=== PATIENT | male | born 1990 | race Caucasian/White ===

== ENCOUNTER 2021-03-27 19:12 | Emergency (ER) | payer MEDICARE, MEDICAID, SELFPAY ==
[2021-03-27 19:21] VITALS: BP 129/64; PULSE 86; RESP 16; TEMP 36.5; O2SAT 98; BMI 27.5
[2021-03-27 19:55] LABS: COVID-19 Test Negative (Negative); IDNOW Serial# 08D9AD1C
--- NOTE | 2021-03-27 22:04 | ED_ITS ---
HPI - URI/Sore Throat General Chief Complaint: Upper Respiratory Symptoms Stated Complaint: Cough Time Seen by Provider: 03/27/21 22:04 Source: patient and family Mode of arrival: ambulatory Limitations: no limitations History of Present Illness HPI Narrative: 31-year-old male came in for evaluation of generalized body ache, coughing, feeling tired. is sick with flu-like symptoms (do know her COVID status). Related Data Allergies Allergy/AdvReac Type Severity Reaction Status Date / Time No Known Allergies Allergy Verified 03/27/21 19:24 Review of Systems Review of Systems: All other systems are reviewed and are negative Constitutional: Reports as per HPI and Reports no additional constitutional complaints Eyes: Reports as per HPI and Reports no additional eye complaints Reports system reviewed and no additional complaints, except as documented Cardiovascular: Reports as per HPI and Reports no additional cardiovascular complaints Respiratory: Reports as per HPI and Reports no additional respiratory complaints Gastrointestinal: Reports as per HPI and Reports no additional gastrointestinal complaints Genitourinary: Reports no additional female genitourinary complaints Musculoskeletal: Reports no additional musculoskeletal complaints Skin/Breast: Reports system reviewed and no additional complaints, except as docu Psychiatric: Reports no additional psychiatric complaints Endocrine: Reports no additional endocrine complaints Hematologic/Lymphatic: Reports no additional hematologic/lymphatic complaints Allergic/Immunologic: Reports no additional allergic/immunologic complaints Reports system reviewed and no additional complaints, except as documented and Reports Abnormal speech present Physical Exam Vital Signs: Vital Signs: Last Vital Signs Temp 97.7 F 03/27/21 19:21 Pulse 86 03/27/21 19:21 Resp 16 03/27/21 19:21 BP 129/64 03/27/21 19:21 Pulse Ox 98 03/27/21 19:21 Body Mass Index 27.5 Vital signs have been reviewed as appeared to be correct. Blood pressure normal . Heart rate normal. Respiration rate normal. Temperature normal. Oxygen saturation normal. Appearance: Alert. Oriented X3. No acute distress. Head: Normal external exam. Normocephalic. Atraumatic. No Rivera signs noted. No raccoon eyes noted Eyes: PERRLA. EOMI. Conjunctiva and sclera normal. Eyelids normal. ENT: TM's Normal. Pharynx normal. Uvula midline. Moist mucous membranes. No trismus noted. No drooling noted. No muffled voice noted. Neck: Normal inspection. Neck supple. FROM. No adenopathy. Thyroid Normal. No meningeal signs. No neck mass noted. CVS: Normal heart rate and rhythm. Heart sound normal. No murmurs noted. Pulses normal throughout. Respiratory: No respiratory distress. Painless inspiration. Breath sounds normal. No wheezes/rales/rhonchi noted. Chest nontender. No accessory muscle usage noted or decreased air movement noted. Abdomen: Soft and nontender. Bowel sounds normal in all 4 quadrants. No distention noted. No organomegaly noted. No visible injury noted. Back: No CVA tenderness. Full range of motion noted. Skin: Skin warm and dry. Normal skin color. Normal skin turgor. No rashes/lesions/lacerations noted. Extremities: No lower extremity edema. Extremities exhibit normal range of motion. Extremities nontender. Neuro: Oriented X 3. Cranial nerve exam: II-XII are grossly intact No motor deficit. No sensory deficit. Reflexes normal. Course Course Course Narrative: Assessment and plan. [age] year male otherwise healthy exposed to somebody thought to be sick with COVID. COVID testing today is negative. MDM - URI/Sore Throat Lab Data Attestation: I reviewed the patient's lab results. Labs: Lab Results 03/27/21 Range/Units 19:26 COVID-19 ([facility]) Negative (Negative) COVID-19 Clin Com See Note Discharge Plan Discharge Clinical Impression: Cough with exposure to COVID-19 virus Patient Disposition: Home, Self-Care Instructions: Acute Cough (ED) Referrals: Riley Weinre FNP-[facility] [Primary Care Provider] - 2 days
== END 2021-03-27 22:55 | disposition home or self-care (01) ==
LOC: HO.ED 22:14
PROVIDERS: Emergency Provider Emergency Medicine; PCP Nurse Practitioner Family
DX: R05 Cough (principal); Z20.822 Contact with and (suspected) exposure to COVID-19
CPT/HCPCS: 36415; 87635; 99283

== ENCOUNTER 2021-08-27 05:45 | Emergency (ER) | payer MEDICARE, MEDICAID, SELFPAY ==
[2021-08-27 05:55] VITALS: BP 138/93; PULSE 94; RESP 16; TEMP 36.8; O2SAT 96; BMI 29.9
--- NOTE | 2021-08-27 07:13 | ED.DENTAL ---
HPI - Dental/Oral General Chief complaint: Dental/Oral Stated complaint: dental pain Time Seen by Provider: 08/27/21 06:43 Source: patient Mode of arrival: ambulatory Limitations: no limitations History of Present Illness HPI Narrative: 31-year-old male who presents emergency department for evaluation of pain in his left lower jaw. Patient states that he had root canals and the to lower molars on the left side of his mouth and the caps fell off the molars. He states that over the past 2 days he has had pain in the left lower jaw. He states the pain is a constant, dull ache which is 4/10 at its worst. He has been taking Aleve with some relief his pain. He has not noticed any facial swelling he states that the gums of his lower jaw or swollen. He states he has had a mild headache. He has had occasional chills. He denied fever. He denied nausea or vomiting. Related Data Previous Rx's Medication Instructions Recorded amoxicillin 500 mg capsule 1,000 mg PO Q12H 10 Days #40 cap 08/27/21 Allergies Allergy/AdvReac Type Severity Reaction Status Date / Time No Known Allergies Allergy Verified 03/27/21 19:24 Review of Systems Review of Systems: Yes all other systems are reviewed and are negative [facility] Past Medical History [facility] Narrative: Past medical history: None. Past surgical history: None. Social history: Patient does smoke cigarettes. Occasionally drinks alcohol. Occasionally smokes marijuana. Medical History (Updated 08/27/21 @ 07:16 by Neftali Marcus MD) No known health problems Surgical History (Updated 08/27/21 @ 06:00 by Yelena White) No history of previous surgery Social History Social History Alcohol intake: unknown Patient Tobacco Use Status: Tobacco use Unknown Use of substances other than those prescribed or required for medical reasons: Unknown Advance Directives: No Advance Directives Information Provided: Yes Physical Exam Vital Signs: Vital Signs: Last Vital Signs Temp 98.2 F 08/27/21 05:55 Pulse 61 08/27/21 07:40 Resp 16 08/27/21 07:40 BP 132/84 08/27/21 07:40 Pulse Ox 99 08/27/21 07:40 BMI result Body Mass Index 29.9 Const: Other: Very pleasant and cooperative male patient, does not appear to be in distress, answers all questions appropriately Orientation/consciousness: oriented to person and oriented to place HENMT: Head: Yes normal to inspection, Yes normocephalic and Yes atraumatic Face and sinus: Yes normal facial exam Mouth: Normal oral and palatal mucosa present Teeth image: 1. Very tender to palpation, dental decay as well, tender gingiva around the tooth with some slight swelling Eyes: General: appearance normal, both eyes and all related structures Pupils: Equal, round and reactive pupils present Neck: Neck: Yes normal visual inspection and Yes no lymphadenopathy Resp: Effort & Inspection: normal respiratory effort Neuro: General: oriented to person and oriented to place Cranial nerves: Yes Equal, round and reactive pupils present Psych: Appearance: grossly normal Course Course Course Narrative: 31-year-old male who presents emergency department for evaluation of dental pain with gingival swelling x2 days. Patient does have tenderness palpation over tooth 19 with swelling of the gingiva in this area. The patient's presentation is consistent with a dental infection. The patient was started on amoxicillin 1000 mg twice a day for 10 days. He is advised to take ibuprofen or Aleve and Tylenol. Discharge Plan Discharge Clinical Impression: Abscess, dental, Pain, dental Patient Disposition: Home, Self-Care Instructions: Dental Abscess (ED) Additional Instructions: Your tooth looks infected. I am prescribing an antibiotic, amoxicillin 500 mg pills, 2 pills every 12 hours for 10 days. Take ibuprofen 200 mg pills, 3 pills every 6 hours as needed for pain. Take Tylenol (acetaminophen) 500 mg pills, 2 pills every 4-6 hours as needed for pain. For pain not relieved by ibuprofen or Tylenol take oxycodone 5 mg pills, 1 pill every 4 hours as needed for pain. Do not drive or work while taking this medication since they can cause sleepiness. Oxycodone is a narcotic medication that can be addicting. If you are concerned about addiction you can ask the pharmacist for less pills or do not get this prescription filled. Follow-up with your dentist in 1 week. Please return to the emergency department if your symptoms get worse or if you develop any symptoms that are concerning to you. Prescriptions: New amoxicillin 500 mg capsule 1,000 mg PO Q12H 10 Days Qty: 40 RF: 0 Interventions: ED Discharge Assessment Last Done: 08/27/21 07:49 Discharge Date/Time: 08/27/21 07:51
[2021-08-27 07:40] VITALS: BP 132/84; PULSE 61; RESP 16; O2SAT 99
--- NOTE | 2021-08-27 07:42 | PC.NURSE ---
pt seen by Dr. Marcus for tooth ache and is now medically cleared for discharge. pt alert and oriented, vss, he currently reports 2/10 tooth ache. discharge instruction reviewed with pt.
== END 2021-08-27 07:51 | disposition home or self-care (01) ==
PROVIDERS: Emergency Provider Emergency Medicine Emergency Medical Services
DX: K04.7 Periapical abscess without sinus (principal); K08.89 Other specified disorders of teeth and supporting structures
CPT/HCPCS: 99283; 99284

== ENCOUNTER 2022-05-21 18:25 | Inpatient (IN) | payer MEDICARE, MEDICAID, SELFPAY ==
--- NOTE | ~2022-05-21 | CT_ITS ---
EXAMINATION: CT ABDOMEN AND PELVIS WITH CONTRAST CLINICAL INFORMATION: Right lower quadrant pain COMPARISON: None TECHNIQUE: Multidetector volumetric images were obtained from the superior aspect of the liver through the pubic symphysis following administration 85 mL of Omnipaque 350 intravenous contrast. Sagittal and coronal reformatted images were obtained on the technologist's workstation. Oral contrast: No This CT examination was performed using dose optimization techniques as appropriate, variously including the following: *Automated exposure control *Adjustment of mA and/or kV according to patient size (this includes techniques or standardized protocols for targeted exams where dose is matched to indication/reason for exam; i.e. extremities or head) *Use of iterative reconstruction technique DLP: 925 mGy-cm FINDINGS: LUNG BASES: The visualized lung bases are unremarkable. LIVER, GALLBLADDER, AND BILIARY TREE: Changes of diffuse hepatic steatosis. No biliary ductal dilatation or focal lesion. Gallstones present without acute auditory changes. Some of the tiny stones appear adherent to the wall. No wall thickening. PANCREAS: Unremarkable. SPLEEN: Unremarkable. ADRENAL GLANDS: Unremarkable. KIDNEYS AND URETERS: The kidneys are normal in size, shape, and attenuation. No hydronephrosis, hydroureter, or calculi seen. No perinephric stranding. BLADDER: Unremarkable. GASTROINTESTINAL TRACT: The small and large bowel are unremarkable. The appendix is unremarkable. ABDOMINAL WALL: No significant hernia is appreciated. LYMPH NODES: Normal. VASCULAR: Unremarkable. PELVIC VISCERA: Unremarkable. OSSEOUS STRUCTURES: Unremarkable. CT/CT abdomen pelvis w IV con IMPRESSION: Gallstones. No definite acute inflammatory changes. Normal appendix. Fleischner guidelines were followed.
--- NOTE | ~2022-05-21 | US_ITS ---
EXAMINATION: US ABDOMEN LIMITED CLINICAL INFORMATION: Right upper quadrant pain. COMPARISON: CT 05/21/2022 TECHNIQUE: Real-time imaging of the right upper quadrant abdominal viscera. FINDINGS: Gallbladder is physiologically distended. Multiple gallstones are identified, some of which appear nonmobile in the gallbladder neck. Gallbladder wall appears edematous and mildly thickened to 0.4 cm. Slight right upper quadrant tenderness was reported during the exam. Common bile duct appears nondilated, measuring 0.4 cm in diameter. There is increased echogenicity of the liver consistent with steatosis, with focal sparing noted near the gallbladder. US/US abdomen limited IMPRESSION: Cholelithiasis with mild gallbladder wall thickening, concerning for acute cholecystitis in the proper clinical setting.
[2022-05-21 18:30] VITALS: BP 148/92; BP 164/92; PULSE 51; PULSE 64; RESP 24; TEMP 36.5; O2SAT 100; BMI 32.3
--- NOTE | 2022-05-21 18:32 | ED_ITS ---
HPI - Abdominal Pain General Chief Complaint: Abdominal Pain <DONNA Meredith Last Filed: 05/21/22 21:43> Stated Complaint: ABD PAIN X 4HOURS <DONNA Meredith Last Filed: 05/21/22 21:43> Time Seen by Provider: 05/21/22 18:30 <DONNA Meredith Last Filed: 05/21/22 21:43> Source: patient and EMS <DONNA Meredith Last Filed: 05/21/22 21:43> Mode of arrival: EMS <DONNA Meredith Last Filed: 05/21/22 21:43> Limitations: no limitations <DONNA Meredith Last Filed: 05/21/22 21:43> History of Present Illness HPI narrative: 32 yo male presents to the ER via EMS for evaluation of sharp, severe lower abdominal pain that started about 6 hours ago while he was lying down resting. He states the pain is located on both sides of his abdomen, mostly on the right from his right upper quadrant down to his right lower quadrant. He also feels pain in his flanks and back bilaterally, he states he feels like his entire torso is being blown up like a balloon. Couple of hours ago he started vomiting bilious vomit. No blood. He has had low-grade fevers throughout the week and has been home with his sick family who has had fevers. They have tested negative for COVID. He has had a few small bowel movements today, no diarrhea. He felt constipated. <DONNA Meredith - Last Filed: 05/21/22 21:43> MD elicited complaint: abdominal pain <DONNA Meredith - Last Filed: 05/21/22 21:43> Pertinent past history: none <DONNA Meredith Last Filed: 05/21/22 21:43> Onset (ago): hour(s) (6) <DONNA Mereidth Last Filed: 05/21/22 21:43> Pain Consistency: constant <DONNA Meredith Last Filed: 05/21/22 21:43> Location: diffuse <DONNA Meredith Last Filed: 05/21/22 21:43> Severity: severe <DONNA Meredith Last Filed: 05/21/22 21:43> Pain scale (0-10): 10 <DONNA Meredith Last Filed: 05/21/22 21:43> Quality: stabbing and sharp <DONNA Meredith Last Filed: 05/21/22 21:43> Migration to: bilateral flank <DONNA Meredith Last Filed: 05/21/22 21:43> Exacerbating factors: nothing <DONNA Meredith Last Filed: 05/21/22 21:43> Relieving factors: nothing <DONNA Meredith Last Filed: 05/21/22 21:43> Associated symptoms: nausea and vomiting <DONNA Meredith Last Filed: 05/21/22 21:43> Related Data Home Medications: Previous Rx's Medication Instructions Recorded amoxicillin 500 mg capsule 1,000 mg PO Q12H 10 days #40 caps 08/27/21 oxycodone 5 mg tablet 5 mg PO Q4H PRN pain #10 tabs 08/27/21 <DONNA Meredith Last Filed: 05/21/22 21:43> Allergies/Adverse Reactions: Allergies Allergy/AdvReac Type Severity Reaction Status Date / Time No Known Allergies Allergy Verified 03/27/21 19:24 <DONNA Meredith Last Filed: 05/21/22 21:43> Review of Systems Review of Systems Constitutional: + Fever, No Chills ENT/Mouth: No sore throat, No Rhinorrhea, No Swallowing Difficulty Eyes: No Eye Pain, No Swelling, No Redness Cardiovascular: No Chest Pain, No SOB, No Orthopnea, No Edema Respiratory: No Cough, No Sputum, No Wheezing, No dyspnea Gastrointestinal: + Nausea, + Vomiting, No Diarrhea, + abdominal Pain, No Hematochezia, No Melena Genitourinary: No Dysuria, No Urinary Frequency, No Hematuria Musculoskeletal: No joint pain, No Myalgias Skin: No Skin Lesions, No rash Neuro: No Weakness, No Numbness, No Dizziness, + Headache Psych: No Anxiety/Panic, No Depression Heme/Lymph: No Bruising, No Lymphadenopathy Endocrine: No Polyuria, No Polydipsia <DONNA Meredith - Last Filed: 05/21/22 21:43> [facility] Past Medical History Medical History: Medical History (Updated 05/21/22 @ 21:39 by DONNA Meredith) No known health problems <DONNA Meredith - Last Filed: 05/21/22 21:43> Surgical History: Surgical History (Updated 08/27/21 @ 06:00 by Yelena White) No history of previous surgery <DONNA Meredith - Last Filed: 05/21/22 21:43> Social History Social History: Social History Alcohol intake: unknown Patient Tobacco Use Status: Tobacco use Unknown Advance Directives: No <DONNA Meredith - Last Filed: 05/21/22 21:43> Physical Exam ED Vital Signs: Vital Signs - 24 hr 05/21/22 18:30 05/21/22 19:15 05/21/22 22:07 Temperature 97.7 F Pulse Rate 51 58 66 Respiratory Rate 24 H 26 H 17 Blood Pressure 148/92 H 156/85 H 100/58 L Pulse Oximetry 100 99 97 Oxygen Delivery Method Room Air Room Air Room Air 05/21/22 23:13 Temperature 97.8 F Pulse Rate 65 Respiratory Rate 14 Blood Pressure 115/64 Pulse Oximetry 97 Oxygen Delivery Method Room Air BMI result Body Mass Index 32.3 <DONNA Meredith - Last Filed: 05/21/22 21:43> Vital Signs - 24 hr 05/21/22 18:30 05/21/22 19:15 05/21/22 22:07 Temperature 97.7 F Pulse Rate 51 58 66 Respiratory Rate 24 H 26 H 17 Blood Pressure 148/92 H 156/85 H 100/58 L Pulse Oximetry 100 99 97 Oxygen Delivery Method Room Air Room Air Room Air 05/21/22 23:13 Temperature 97.8 F Pulse Rate 65 Respiratory Rate 14 Blood Pressure 115/64 Pulse Oximetry 97 Oxygen Delivery Method Room Air BMI result Body Mass Index 32.3 <DONNA Larson - Last Filed: 05/22/22 01:28> Appearance: Alert. Oriented X3. Appears to be uncomfortable, diapho retic, pale Eyes: Pupils equal, round and reactive to light. ENT: Pharynx normal. Neck: Normal inspection. Neck supple. CVS: Normal heart rate and rhythm. Pulses normal. Respiratory: No respiratory distress. Breath sounds normal. Abdomen: Abdomen has diffuse severe tenderness throughout with guarding R>L, RUQ and RLL both very tender. Normal bowel sounds x4 Skin: Skin warm and dry. Normal skin color. Normal skin turgor. No rashes. Extremities: No lower extremity edema. Neuro: Oriented X 3. No motor deficit. No sensory deficit. Grossly normal, nonfocal <DONNA Meredith - Last Filed: 05/21/22 21:43> Course Course Course Narrative: 32-year-old male presents to the ER for evaluation of severe abdominal pain, mostly located on the right side both upper and lower quadrants along with bilious vomiting for the last few hours. Concern for possible acute cholecystitis versus acute appendicitis. Will get labs including LFTs, lipase, CMP, and CT abdomen/pelvis. IV fluids, IV Dilaudid and IV Zofran have been ordered. Will reassess. Dispo pending results and improvement. <DONNA Meredith - Last Filed: 05/21/22 21:43> Reevaluation(s) Reevaluation #1: WBC 13.2. CT scan reviewed - concern for possible acute cholecystitis. LFTs unremarkable aside from ALT 94, normal bili, alk phos an lipase. will check lactic acid, cultures and empirically treat with zosyn for now. pending official CT read. Pain and vomiting improved after meds. Signed out to night provider who will assume care. <DONNA Meredith - Last Filed: 05/21/22 21:43> Reevaluation #2: CT of the abdomen with noted gallstones however no definite acute inflammatory changes. Normal appearing appendix. Based off patient's pain and presentation will obtain an ultrasound of right upper quadrant to rule out cholecystitis <DONNA Larson Last Filed: 05/22/22 01:28> Time: 23:53 <DONNA Larson - Last Filed: 05/22/22 01:28> Reevaluation #3: Patient reports significant improvement in symptoms. Pending ultrasound of the right upper quadrant. Tolerating p.o., taking sips of water without difficulty. Sign will be given to Dr. Cortes pending ultrasound, , re-evaluation, disposition pending re-evaluation and imaging. <DONNA Larson - Last Filed: 05/22/22 01:28> Time: 01:26 <DONNA Larson - Last Filed: 05/22/22 01:28> MDM - Abdominal Pain Lab Data Result diagrams: : 05/21/22 19:05 05/21/22 19:05 <DONNA Meredith - Last Filed: 05/21/22 21:43> Labs: Lab Results 05/21/22 05/21/22 05/21/22 Range/Units 19:05 19:05 19:05 WBC 13.2 H (4.8-10.8) X10*3/uL RBC 4.97 (4.60-5.80) X10*6/uL Hgb 16.0 (14.0-18.0) g/dl Hct 45.8 (42.0-52.0) % MCV 92.2 (80.0-98.0) fL MCH 32.2 (27.0-33.0) pg MCHC 34.9 (31.0-36.0) g/dl RDW 12.2 (11.0-16.0) % Plt Count 290 (160-400) X10*3/uL MPV 10.2 (9.4-12.4) fL Immature Gran % (Auto) 0.3 (0.0-0.4) % Neut % (Auto) 74.8 H (45-73) % Lymph % (Auto) 17.7 L (20-40) % Lincoln % (Auto) 4.3 (2-11) % Eos % (Auto) 2.2 (0-4) % Baso % (Auto) 0.7 (0-2) % Lymph # (Auto) 2.3 (1.2-4.9) X10*3/uL Lincoln # (Auto) 0.6 (0.1-1.2) X10*3/uL Eos # (Auto) 0.3 (0.0-0.4) X10*3/uL Baso # (Auto) 0.1 (0.0-0.2) X10*3/uL Abs Immat Gran (auto) 0.04 H (0.00-0.03) X10*3/uL Absolute Neuts (auto) 9.9 H (2.0-8.3) x10*3/uL Absolute Nucleated RBC 0.000 (0.0-0.012) X10*3/uL Nucleated RBC % (auto) 0.0 (0.0-0.2) /100WBC Sodium 142 (135-145) mmol/L Potassium 4.0 (3.3-5.1) mmol/L Chloride 107 (96-108) mmol/L Carbon Dioxide 24 (22-29) mmol/L Anion Gap 15 (12-20) BUN 12 (9-16) mg/dL Creatinine 1.18 (0.5-1.4) mg/dL Estim Creat Clear Calc 123.0 Estimated GFR > 60 Random Glucose 126 H (60-115) mg/dL Lactic Acid (0.5-2.0) mmol/L Calcium 9.4 (8.4-10.2) mg/dL Magnesium 2.1 (1.6-2.6) mg/dL Total Bilirubin 0.4 (0.0-1.0) mg/dL Direct Bilirubin 0.2 (0.0-0.5) mg/dL AST 29 (5-37) U/L ALT 94 H (0-40) U/L Alkaline Phosphatase 94 (39-117) U/L Total Protein 8.2 H (6.5-8.0) g/dL Albumin 4.8 (3.5-5.0) g/dL Lipase 14 (8-78) U/L Ethyl Alcohol mg/dL COVID-19 ([facility]) Negative (Negative) COVID-19 Clin Com See Note 05/21/22 05/21/22 Range/Units 19:05 21:56 WBC (4.8-10.8) X10*3/uL RBC (4.60-5.80) X10*6/uL Hgb (14.0-18.0) g/dl Hct (42.0-52.0) % MCV (80.0-98.0) fL MCH (27.0-33.0) pg MCHC (31.0-36.0) g/dl RDW (11.0-16.0) % Plt Count (160-400) X10*3/uL MPV (9.4-12.4) fL Immature Gran % (Auto) (0.0-0.4) % Neut % (Auto) (45-73) % Lymph % (Auto) (20-40) % Lincoln % (Auto) (2-11) % Eos % (Auto) (0-4) % Baso % (Auto) (0-2) % Lymph # (Auto) (1.2-4.9) X10*3/uL Lincoln # (Auto) (0.1-1.2) X10*3/uL Eos # (Auto) (0.0-0.4) X10*3/uL Baso # (Auto) (0.0-0.2) X10*3/uL Abs Immat Gran (auto) (0.00-0.03) X10*3/uL Absolute Neuts (auto) (2.0-8.3) x10*3/uL Absolute Nucleated RBC (0.0-0.012) X10*3/uL Nucleated RBC % (auto) (0.0-0.2) /100WBC Sodium (135-145) mmol/L Potassium (3.3-5.1) mmol/L Chloride (96-108) mmol/L Carbon Dioxide (22-29) mmol/L Anion Gap (12-20) BUN (9-16) mg/dL Creatinine (0.5-1.4) mg/dL Estim Creat Clear Calc Estimated GFR Random Glucose (60-115) mg/dL Lactic Acid 1.7 (0.5-2.0) mmol/L Calcium (8.4-10.2) mg/dL Magnesium (1.6-2.6) mg/dL Total Bilirubin (0.0-1.0) mg/dL Direct Bilirubin (0.0-0.5) mg/dL AST (5-37) U/L ALT (0-40) U/L Alkaline Phosphatase (39-117) U/L Total Protein (6.5-8.0) g/dL Albumin (3.5-5.0) g/dL Lipase (8-78) U/L Ethyl Alcohol < 10 mg/dL COVID-19 ([facility]) (Negative) COVID-19 Clin Com <DONNA Meredith - Last Filed: 05/21/22 21:43> Lab Results 05/21/22 05/21/22 05/21/22 Range/Units 19:05 19:05 19:05 WBC 13.2 H (4.8-10.8) X10*3/uL RBC 4.97 (4.60-5.80) X10*6/uL Hgb 16.0 (14.0-18.0) g/dl Hct 45.8 (42.0-52.0) % MCV 92.2 (80.0-98.0) fL MCH 32.2 (27.0-33.0) pg MCHC 34.9 (31.0-36.0) g/dl RDW 12.2 (11.0-16.0) % Plt Count 290 (160-400) X10*3/uL MPV 10.2 (9.4-12.4) fL Immature Gran % (Auto) 0.3 (0.0-0.4) % Neut % (Auto) 74.8 H (45-73) % Lymph % (Auto) 17.7 L (20-40) % Lincoln % (Auto) 4.3 (2-11) % Eos % (Auto) 2.2 (0-4) % Baso % (Auto) 0.7 (0-2) % Lymph # (Auto) 2.3 (1.2-4.9) X10*3/uL Lincoln # (Auto) 0.6 (0.1-1.2) X10*3/uL Eos # (Auto) 0.3 (0.0-0.4) X10*3/uL Baso # (Auto) 0.1 (0.0-0.2) X10*3/uL Abs Immat Gran (auto) 0.04 H (0.00-0.03) X10*3/uL Absolute Neuts (auto) 9.9 H (2.0-8.3) x10*3/uL Absolute Nucleated RBC 0.000 (0.0-0.012) X10*3/uL Nucleated RBC % (auto) 0.0 (0.0-0.2) /100WBC Sodium 142 (135-145) mmol/L Potassium 4.0 (3.3-5.1) mmol/L Chloride 107 (96-108) mmol/L Carbon Dioxide 24 (22-29) mmol/L Anion Gap 15 (12-20) BUN 12 (9-16) mg/dL Creatinine 1.18 (0.5-1.4) mg/dL Estim Creat Clear Calc 123.0 Estimated GFR > 60 Random Glucose 126 H (60-115) mg/dL Lactic Acid (0.5-2.0) mmol/L Calcium 9.4 (8.4-10.2) mg/dL Magnesium 2.1 (1.6-2.6) mg/dL Total Bilirubin 0.4 (0.0-1.0) mg/dL Direct Bilirubin 0.2 (0.0-0.5) mg/dL AST 29 (5-37) U/L ALT 94 H (0-40) U/L Alkaline Phosphatase 94 (39-117) U/L Total Protein 8.2 H (6.5-8.0) g/dL Albumin 4.8 (3.5-5.0) g/dL Lipase 14 (8-78) U/L Ethyl Alcohol mg/dL COVID-19 ([facility]) Negative (Negative) COVID-19 Clin Com See Note 05/21/22 05/21/22 Range/Units 19:05 21:56 WBC (4.8-10.8) X10*3/uL RBC (4.60-5.80) X10*6/uL Hgb (14.0-18.0) g/dl Hct (42.0-52.0) % MCV (80.0-98.0) fL MCH (27.0-33.0) pg MCHC (31.0-36.0) g/dl RDW (11.0-16.0) % Plt Count (160-400) X10*3/uL MPV (9.4-12.4) fL Immature Gran % (Auto) (0.0-0.4) % Neut % (Auto) (45-73) % Lymph % (Auto) (20-40) % Lincoln % (Auto) (2-11) % Eos % (Auto) (0-4) % Baso % (Auto) (0-2) % Lymph # (Auto) (1.2-4.9) X10*3/uL Lincoln # (Auto) (0.1-1.2) X10*3/uL Eos # (Auto) (0.0-0.4) X10*3/uL Baso # (Auto) (0.0-0.2) X10*3/uL Abs Immat Gran (auto) (0.00-0.03) X10*3/uL Absolute Neuts (auto) (2.0-8.3) x10*3/uL Absolute Nucleated RBC (0.0-0.012) X10*3/uL Nucleated RBC % (auto) (0.0-0.2) /100WBC Sodium (135-145) mmol/L Potassium (3.3-5.1) mmol/L Chloride (96-108) mmol/L Carbon Dioxide (22-29) mmol/L Anion Gap (12-20) BUN (9-16) mg/dL Creatinine (0.5-1.4) mg/dL Estim Creat Clear Calc Estimated GFR Random Glucose (60-115) mg/dL Lactic Acid 1.7 (0.5-2.0) mmol/L Calcium (8.4-10.2) mg/dL Magnesium (1.6-2.6) mg/dL Total Bilirubin (0.0-1.0) mg/dL Direct Bilirubin (0.0-0.5) mg/dL AST (5-37) U/L ALT (0-40) U/L Alkaline Phosphatase (39-117) U/L Total Protein (6.5-8.0) g/dL Albumin (3.5-5.0) g/dL Lipase (8-78) U/L Ethyl Alcohol < 10 mg/dL COVID-19 ([facility]) (Negative) COVID-19 Clin Com <DONNA Larson - Last Filed: 05/22/22 01:28> Critical Care Time Critical Care Time Critical Care Time: No <DONNA Larson - Last Filed: 05/22/22 01:28> Discharge Plan Discharge Clinical Impression: Abdominal pain <DONNA Meredith - Last Filed: 05/21/22 21:43> Patient Disposition: Still a Patient <DONNA Meredith - Last Filed: 05/21/22 21:43> Prescriptions: No Action amoxicillin 500 mg capsule 1,000 mg PO Q12H 10 Days Qty: 40 0RF oxycodone 5 mg tablet 5 mg PO Q4H PRN (Reason: pain) Qty: 10 0RF Rx Instructions: Patient may request partial fill <DONNA Meredith - Last Filed: 05/21/22 21:43>
[2022-05-21 19:14] LABS: MANUAL DIFF FLAG NO
[2022-05-21 19:15] VITALS: BP 156/85; PULSE 58; RESP 26; O2SAT 99
[2022-05-21 19:15] LABS: Basophils Absolute Auto 0.1 X10*3/uL (0.0-0.2); Basophils Percent Auto 0.7 % (0-2); Eosinophils Absolute Auto 0.3 X10*3/uL (0.0-0.4); Eosinophils Percent Auto 2.2 % (0-4); Hematocrit 45.8 % (42.0-52.0); Imm Gran Abs Auto 0.04 X10*3/uL (0.00-0.03); Imm Gran Pct Auto 0.3 % (0.0-0.4); Lymphocytes Absolute Auto 2.3 X10*3/uL (1.2-4.9); Lymphocytes Percent Auto 17.7 % (20-40); Mean Corpuscular HGB Conc 34.9 g/dl (31.0-36.0); Mean Corpuscular Hemoglobin 32.2 pg (27.0-33.0); Mean Corpuscular Volume 92.2 fL (80.0-98.0); Mean Platelet Volume 10.2 fL (9.4-12.4); Monocytes Absolute Auto 0.6 X10*3/uL (0.1-1.2); Monocytes Percent Auto 4.3 % (2-11); Neutrophils Absolute Auto 9.9 x10*3/uL (2.0-8.3); Neutrophils Percent Auto 74.8 % (45-73); Platelet Count 290 X10*3/uL (160-400); Red Blood Count 4.97 X10*6/uL (4.60-5.80); Red Cell Distribution Width 12.2 % (11.0-16.0); White Blood Count 13.2 X10*3/uL (4.8-10.8)
[2022-05-21] MEDS: HYDROmorphone HCl 1 MG/ML SYRINGE IVPUSH (19:22)
--- NOTE | 2022-05-21 19:22 | PC.NURSE ---
Order for Morphine cancelled. Returning to [facility] at this time
--- NOTE | 2022-05-21 19:22 | PC.NURSE ---
Pt. on monitor and storage bin tender at this time by this RN
[2022-05-21] MEDS: ondansetron HCL 4 MG/2 ML VIAL IVPUSH (19:24)
[2022-05-21 19:27] LABS: Ethanol < 10 mg/dL
[2022-05-21 19:29] LABS: Alanine Aminotransferase 94 U/L (0-40); Albumin Level 4.8 g/dL (3.5-5.0); Alkaline Phosphatase 94 U/L (39-117); Anion Gap 15 (12-20); Aspartate Amino Transferase 29 U/L (5-37); Bilirubin Direct 0.2 mg/dL (0.0-0.5); Bilirubin Total 0.4 mg/dL (0.0-1.0); Blood Urea Nitrogen 12 mg/dL (9-16); Calcium 9.4 mg/dL (8.4-10.2); Carbon Dioxide 24 mmol/L (22-29); Chloride 107 mmol/L (96-108); Estimated Glomerular Filt Rate > 60; Glucose Random 126 mg/dL (60-115); Lipase 14 U/L (8-78); Magnesium 2.1 mg/dL (1.6-2.6); Sodium 142 mmol/L (135-145); Total Protein 8.2 g/dL (6.5-8.0)
[2022-05-21 19:30] LABS: COVID-19 Test Negative (Negative)
[2022-05-21] MEDS: iohexoL 350 MG/ML 100 ML INFUS..BTL IV (21:19)
--- NOTE | 2022-05-21 21:24 | PC.NURSE ---
Float RN called into assist CT with IV placement. Pt's #20G to the Right arm did not have blood return and although it flushed the surrounding area appeared to be infiltrated. RN placed new #20G to the left forearm; CT to dc IV line on right side
[2022-05-21 22:07] VITALS: BP 100/58; PULSE 66; RESP 17; O2SAT 97
[2022-05-21 22:11] LABS: Lactic Acid 1.7 mmol/L (0.5-2.0)
[2022-05-21] MEDS: Piperacillin Sodium/Tazobactam 3.375 GM in 0.9 % Sodium Chloride 50 ML IV (22:24)
[2022-05-21] MEDS: 0.9 % Sodium Chloride 1,000 ML 999 ML IVCONT (22:25)
[2022-05-21 23:13] VITALS: BP 115/64; PULSE 65; RESP 14; TEMP 36.6; O2SAT 97
--- NOTE | 2022-05-21 23:54 | PC.NURSE ---
Still awaiting urine spec. at this time. Pt. has urinal at bedside
[2022-05-22 01:26] LABS: Appearance Urine Clear; Color Urine Yellow; Glucose Urine UA Negative (Negative); Leukocyte Esterase Urine Negative (Negative); Nitrite Urine Negative (Negative); PH 6.5 (5.0-9.0); Specific Gravity - Urine >= 1.030 (1.005-1.025); Urine Blood Negative (Negative); Urine Ketones Negative (Negative); Urine Protein Negative (Neg-Trace)
[2022-05-22 01:39] LABS: Amphetamine Screen Urine Not Detected (Not Detect); Barbiturates, Urine Not Detected (Not Detect); Benzodiazepines Screen Urine Not Detected (Not Detect); Cannabinoid Screen Urine POSITIVE (Not Detect); Cocaine Screen Urine Not Detected (Not Detect); Fentanyl, urine Not Detected (Not Detect); Opiate Screen Urine Not Detected (Not Detect); Phencyclidine Screen Urine Not Detected (Not Detect)
[2022-05-22 02:41] VITALS: BP 124/65; PULSE 59; RESP 12; O2SAT 98
[2022-05-22] MEDS: 0.9 % Sodium Chloride 1,000 ML 100 ML IVCONT ×3 (03:15→21:49)
[2022-05-22 04:43] VITALS: BP 116/67; PULSE 69; RESP 13; TEMP 36.8; O2SAT 98
[2022-05-22] MEDS: Piperacillin Sodium/Tazobactam 3.375 GM in 0.9 % Sodium Chloride 50 ML IV ×4 (06:27→23:16)
[2022-05-22 07:15] LABS: MANUAL DIFF FLAG NO
[2022-05-22 07:26] LABS: Basophils Absolute Auto 0.1 X10*3/uL (0.0-0.2); Basophils Percent Auto 0.5 % (0-2); Eosinophils Absolute Auto 0.2 X10*3/uL (0.0-0.4); Eosinophils Percent Auto 1.7 % (0-4); Hematocrit 39.5 % (42.0-52.0); Hemoglobin 13.8 g/dl (14.0-18.0); Imm Gran Abs Auto 0.02 X10*3/uL (0.00-0.03); Imm Gran Pct Auto 0.2 % (0.0-0.4); Lymphocytes Percent Auto 31.7 % (20-40); Mean Corpuscular HGB Conc 34.9 g/dl (31.0-36.0); Mean Corpuscular Hemoglobin 32.6 pg (27.0-33.0); Mean Corpuscular Volume 93.4 fL (80.0-98.0); Mean Platelet Volume 10.7 fL (9.4-12.4); Monocytes Absolute Auto 0.6 X10*3/uL (0.1-1.2); Monocytes Percent Auto 6.1 % (2-11); Neutrophils Absolute Auto 5.7 x10*3/uL (2.0-8.3); Neutrophils Percent Auto 59.8 % (45-73); Platelet Count 234 X10*3/uL (160-400); Red Blood Count 4.23 X10*6/uL (4.60-5.80); Red Cell Distribution Width 12.1 % (11.0-16.0); White Blood Count 9.5 X10*3/uL (4.8-10.8)
[2022-05-22 07:41] LABS: Alanine Aminotransferase 70 U/L (0-40); Albumin Level 3.8 g/dL (3.5-5.0); Alkaline Phosphatase 77 U/L (39-117); Anion Gap 14 (12-20); Aspartate Amino Transferase 21 U/L (5-37); Bilirubin Direct 0.2 mg/dL (0.0-0.5); Bilirubin Total 0.6 mg/dL (0.0-1.0); Blood Urea Nitrogen 9 mg/dL (9-16); Calcium 8.8 mg/dL (8.4-10.2); Carbon Dioxide 25 mmol/L (22-29); Chloride 107 mmol/L (96-108); Creatinine Clr Calc Pharmacy 186.2; Estimated Glomerular Filt Rate > 60; Glucose Random 94 mg/dL (60-115); Potassium 3.7 mmol/L (3.3-5.1); Sodium 142 mmol/L (135-145); Total Protein 6.5 g/dL (6.5-8.0)
[2022-05-22 07:43] VITALS: BP 119/67; PULSE 69; RESP 14; TEMP 36.4; O2SAT 98
--- NOTE | 2022-05-22 09:18 | P.HPGS_ITS ---
History of Present Illness History of Present Illness Date of Service: 05/25/22 Chief complaint: Abdominal Pain Narrative: Ger Brito is a 32 year old male who came to the ED last night because of abdominal pain. He says this started about midafternoon yesterday. He actually described pain on the entire anterior chest and abdomen. He says he felt like he had a balloon inside his torso. He described the pain as diffuse and not only right sided. He had some vomitting at home. He denies similar pain in the past. He currently denies pain and says he is comfortable. he had an US early this AM suggesting possible cholecystitis. He says he drinks alcohol occasional and denies alcohol intake yesterday. He smokes about 1 pack every 2 weeks. He smokes marijuana occasionally. Review of Systems Constitutional: Constitutional: Denies chills and Denies fever(s) Cardiovascular: Cardiovascular: Reports chest pain, Denies dyspnea and Denies dyspnea on exertion Respiratory: Respiratory: Denies cough, Denies dyspnea and Denies dyspnea on exertion Gastrointestinal: Gastrointestinal: Denies hematochezia and Denies change in bowel habits Genitourinary: Genitourinary: Denies hematuria and Denies difficulty urinating Musculoskeletal: Musculoskeletal: Denies back pain and Denies limited range of motion Neurologic: Denies focal weakness and Denies convulsions Psychiatric: Psychiatric: Denies depression and Denies mood swings PMFSH Past Medical History Medical History (Updated 05/22/22 @ 09:40 by Marc Reid MD) Gallstones No known health problems Surgical History Surgical History No history of previous surgery Social History Social History Household Members: Family Housing: Apartment Do you presently have visiting nurse or other home services: No Alcohol intake: unknown Patient Tobacco Use Status: Current everyday Tobacco user Tobacco use type: Cigarette Substance Use Type: Marijuana service: No Current occupational status: disabled Meds Allergies Allergy/AdvReac Type Severity Reaction Status Date / Time No Known Allergies Allergy Verified 03/27/21 19:24 Active Medications: Current Medications Sodium Chloride (Ns) 1,000 mls @ 100 mls/hr IVCONT .Q10H [facility] Last Admin: 05/22/22 03:15 Dose: 100 mls/hr Piperacillin Sod/Tazobactam (Sod 3.375 gm/ Sodium Chloride) 50 mls @ 100 mls/hr IV Q6H [facility] Last Infusion: 05/22/22 07:29 Dose: Infused Morphine Sulfate (Morphine Sulfate 4 Mg/Ml Cartridge) 4 mg IVPUSH Q4H PRN; Protocol PRN Reason: Pain, Severe (Pain Scale 7-10) Ondansetron HCl (Ondansetron Hcl 4 Mg/2 Ml Vial) 4 mg IVPUSH Q8H PRN PRN Reason: Nausea and Vomiting Sodium Chloride (0.9 % Sodium Chloride Flush 3 Ml Syringe) 3 ml IVFLUSH QSHIFT [facility] Home Medications Medication Instructions Recorded Confirmed Last Taken Type No Known Home Meds 05/22/22 05/22/22 Unknown History Physical Exam Vital Signs: Vital Signs: Last Vital Signs Temp 97.5 F 05/22/22 07:43 Pulse 69 05/22/22 07:43 Resp 14 05/22/22 07:43 BP 119/67 05/22/22 07:43 Pulse Ox 98 05/22/22 07:43 O2 Del Method 05/22/22 07:43 BMI result Body Mass Index 32.3 Const: General: comfortable and no acute distress Orientation/consciousness: patient oriented x3 Neck: Neck: Yes no lymphadenopathy Resp: Auscultation: clear to auscultation bilaterally Cardio: Rhythm: regular rhythm GI: Other: no Lopez's sign Palpation (GI): Soft to palpation, nontender and no guarding Neuro: General: patient oriented x3 Results Results Labs: Short CBC 05/21/22 05/22/22 Range/Units 19:05 06:53 WBC 13.2 H 9.5 (4.8-10.8) X10*3/uL Hgb 16.0 13.8 L (14.0-18.0) g/dl Hct 45.8 39.5 L (42.0-52.0) % Plt Count 290 234 (160-400) X10*3/uL BMP 05/21/22 05/22/22 19:05 06:53 Sodium 142 142 Potassium 4.0 3.7 Chloride 107 107 Carbon Dioxide 24 25 BUN 12 9 Creatinine 1.18 0.78 Calcium 9.4 8.8 D Liver Function 05/21/22 05/22/22 Range/Units 19:05 06:53 Total Bilirubin 0.4 0.6 (0.0-1.0) mg/dL Direct Bilirubin 0.2 0.2 (0.0-0.5) mg/dL AST 29 21 (5-37) U/L ALT 94 H 70 H (0-40) U/L Alkaline Phosphatase 94 77 (39-117) U/L Albumin 4.8 3.8 D (3.5-5.0) g/dL Urine 05/22/22 Range/Units 01:21 Urine Color Yellow Urine Appearance Clear Urine pH 6.5 (5.0-9.0) Ur Specific [place] >= 1.030 H (1.005-1.025) Urine Protein Negative (Neg-Trace) mg/dL Urine Glucose (UA) Negative (Negative) mg/dL Additional studies: Laboratory Results WBC 9.5 X10*3/uL (4.8-10.8) 05/22/22 06:53 RBC 4.23 X10*6/uL (4.60-5.80) L 05/22/22 06:53 Hgb 13.8 g/dl (14.0-18.0) L 05/22/22 06:53 Hct 39.5 % (42.0-52.0) L 05/22/22 06:53 MCV 93.4 fL (80.0-98.0) 05/22/22 06:53 MCH 32.6 pg (27.0-33.0) 05/22/22 06:53 MCHC 34.9 g/dl (31.0-36.0) 05/22/22 06:53 RDW 12.1 % (11.0-16.0) 05/22/22 06:53 Plt Count 234 X10*3/uL (160-400) 05/22/22 06:53 MPV 10.7 fL (9.4-12.4) 05/22/22 06:53 Immature Gran % (Auto) 0.2 % (0.0-0.4) 05/22/22 06:53 Neut % (Auto) 59.8 % (45-73) 05/22/22 06:53 Lymph % (Auto) 31.7 % (20-40) 05/22/22 06:53 [place] % (Auto) 6.1 % (2-11) 05/22/22 06:53 Eos % (Auto) 1.7 % (0-4) 05/22/22 06:53 Baso % (Auto) 0.5 % (0-2) 05/22/22 06:53 Lymph # (Auto) 3.0 X10*3/uL (1.2-4.9) 05/22/22 06:53 [place] # (Auto) 0.6 X10*3/uL (0.1-1.2) 05/22/22 06:53 Eos # (Auto) 0.2 X10*3/uL (0.0-0.4) 05/22/22 06:53 Baso # (Auto) 0.1 X10*3/uL (0.0-0.2) 05/22/22 06:53 Abs Immat Gran (auto) 0.02 X10*3/uL (0.00-0.03) 05/22/22 06:53 Absolute Neuts (auto) 5.7 x10*3/uL (2.0-8.3) 05/22/22 06:53 Absolute Nucleated RBC 0.000 X10*3/uL (0.0-0.012) 05/22/22 06:53 Nucleated RBC % (auto) 0.0 /100WBC (0.0-0.2) 05/22/22 06:53 Sodium 142 mmol/L (135-145) 05/22/22 06:53 Potassium 3.7 mmol/L (3.3-5.1) 05/22/22 06:53 Chloride 107 mmol/L (96-108) 05/22/22 06:53 Carbon Dioxide 25 mmol/L (22-29) 05/22/22 06:53 Anion Gap 14 (12-20) 05/22/22 06:53 BUN 9 mg/dL (9-16) 05/22/22 06:53 Creatinine 0.78 mg/dL (0.5-1.4) 05/22/22 06:53 Estim Creat Clear Calc 186.2 05/22/22 06:53 Estimated GFR > 60 05/22/22 06:53 Random Glucose 94 mg/dL (60-115) 05/22/22 06:53 Lactic Acid 1.7 mmol/L (0.5-2.0) 05/21/22 21:56 Calcium 8.8 mg/dL (8.4-10.2) D 05/22/22 06:53 Magnesium 2.1 mg/dL (1.6-2.6) 05/21/22 19:05 Total Bilirubin 0.6 mg/dL (0.0-1.0) 05/22/22 06:53 Direct Bilirubin 0.2 mg/dL (0.0-0.5) 05/22/22 06:53 AST 21 U/L (5-37) 05/22/22 06:53 ALT 70 U/L (0-40) H 05/22/22 06:53 Alkaline Phosphatase 77 U/L (39-117) 05/22/22 06:53 Total Protein 6.5 g/dL (6.5-8.0) D 05/22/22 06:53 Albumin 3.8 g/dL (3.5-5.0) D 05/22/22 06:53 Lipase 14 U/L (8-78) 05/21/22 19:05 Urine Color Yellow 05/22/22 01:21 Urine Appearance Clear 05/22/22 01:21 Urine pH 6.5 (5.0-9.0) 05/22/22 01:21 Ur Specific [place] >= 1.030 (1.005-1.025) H 05/22/22 01:21 Urine Protein Negative mg/dL (Neg-Trace) 05/22/22 01:21 Urine Glucose (UA) Negative mg/dL (Negative) 05/22/22 01:21 Urine Ketones Negative mg/dL (Negative) 05/22/22 01:21 Urine Blood Negative (Negative) 05/22/22 01:21 Urine Nitrite Negative (Negative) 05/22/22 01:21 Ur Leukocyte Esterase Negative (Negative) 05/22/22 01:21 Urine Opiates Screen Not Detected (Not Detect) 05/22/22 01:21 Urine Fentanyl Screen Not Detected (Not Detect) 05/22/22 01:21 Ur Barbiturates Screen Not Detected (Not Detect) 05/22/22 01:21 Ur Phencyclidine Scrn Not Detected (Not Detect) 05/22/22 01:21 Ur Amphetamines Screen Not Detected (Not Detect) 05/22/22 01:21 U Benzodiazepines Scrn Not Detected (Not Detect) 05/22/22 01:21 Urine Cocaine Screen Not Detected (Not Detect) 05/22/22 01:21 U Marijuana (THC) Screen POSITIVE (Not Detect) H 05/22/22 01:21 Ethyl Alcohol < 10 mg/dL 05/21/22 19:05 COVID-19 (NICOLA) Negative (Negative) 05/21/22 19:05 COVID-19 Clin Com See Note 05/21/22 19:05 Impressions Abdomen/Pelvis CT 05/21/22 21:25 IMPRESSION: Gallstones. No definite acute inflammatory changes. Normal appendix. Fleischner guidelines were followed. Abdomen Ultrasound 05/22/22 02:10 IMPRESSION: Cholelithiasis with mild gallbladder wall thickening, concerning for acute cholecystitis in the proper clinical setting. Assessment and Plan (1) Abdominal pain: Status: Acute Plan He came in because abdominal pain, vague, sides, as well as on the chest. His CAT scan shows gallstones. He actually does not have any pain anymore this time. He does not have any tenderness or Lopez sign on current exam In view of the findings of gallstones with possible biliary colic, I admitted him to monitor him. I did explain to him the possible need for cholecystectomy if has persistent pain. He current exam does not suggest acute cholecystitis His LFTs are also normal. He is hemodynamically stable. Quality Stroke Does the patient have a stroke diagnosis?: No VTE Prior VTE?: No VTE Risk Level:: Medical - low VTE Device Contraindication: N/A - Device Ordered VTE Drug Contraindication: Treatment Not Indicated Procedures Date of Service Date of Service: 05/22/22
--- NOTE | 2022-05-22 09:55 | PHA.MEDREC ---
Pharmacy Consult ? Medication Reconciliation Pharmacy has completed the medication reconciliation.
[2022-05-22] MEDS: 0.9 % Sodium Chloride Flush 3 ML SYRINGE IVFLUSH ×2 (11:19→23:20)
[2022-05-22 11:56] VITALS: BP 117/75; PULSE 68; RESP 16; TEMP 36.7; O2SAT 98
--- NOTE | 2022-05-22 13:16 | PC.NURSE ---
Report given to Alireza TRUJILLO. patient aware of plan of care .
--- NOTE | 2022-05-22 13:53 | PM.EVENT ---
Event Note Date of Service: 05/22/22 Event Note: denies any abdominal pain no tenderness on RUQ no Lopez's sign no fever looks well he wants to be discharged - says his father in law had and he wants to be with his I explained to him I will observe for tonight if he continues to feels well harpreet, will dc home he is aware of option of lap alie - he says he may do this as outpt
[2022-05-22 19:40] VITALS: BP 137/79; PULSE 60; RESP 18; TEMP 36.9; O2SAT 98
[2022-05-22 23:56] VITALS: BP 127/77; PULSE 59; RESP 16; TEMP 36.2; O2SAT 96
[2022-05-23 03:36] VITALS: BP 113/56; PULSE 55; RESP 16; TEMP 36.3; O2SAT 96
[2022-05-23] MEDS: Piperacillin Sodium/Tazobactam 3.375 GM in 0.9 % Sodium Chloride 50 ML IV (06:08)
[2022-05-23] MEDS: 0.9 % Sodium Chloride 1,000 ML 100 ML IVCONT (06:08)
[2022-05-23 06:59] VITALS: BP 150/65; PULSE 56; RESP 61; TEMP 36.1; O2SAT 97
--- NOTE | 2022-05-23 07:10 | P.PNGS_ITS ---
Subjective Subjective Date of Service: 05/23/22 Interval history: feels well denies any abdominal pain says he had a good night Physical Exam Vital Signs: Vital Signs: Last Vital Signs Temp 97 F 05/23/22 06:59 Pulse 56 05/23/22 06:59 Resp 61 H 05/23/22 06:59 BP 150/65 H 05/23/22 06:59 Pulse Ox 97 05/23/22 06:59 O2 Del Method 05/23/22 06:59 BMI result Body Mass Index 32.3 Const: General: comfortable and no acute distress Orientation/consciousness: patient oriented x3 Neck: Neck: Yes no lymphadenopathy Resp: Auscultation: clear to auscultation bilaterally Cardio: Rhythm: regular rhythm GI: Palpation (GI): Soft to palpation, nontender and no guarding Neuro: General: patient oriented x3 Objective Data Active Medications Sodium Chloride (Ns) 1,000 mls @ 100 mls/hr IVCONT .Q10H [facility] Last Admin: 05/23/22 06:08 Dose: 100 mls/hr Documented By: ROSY Piperacillin Sod/Tazobactam (Sod 3.375 gm/ Sodium Chloride) 50 mls @ 100 mls/hr IV Q6H [facility] Last Admin: 05/23/22 06:08 Dose: 100 mls/hr Documented By: ROSY Morphine Sulfate (Morphine Sulfate 4 Mg/Ml Cartridge) 4 mg IVPUSH Q4H PRN; Protocol PRN Reason: Pain, Severe (Pain Scale 7-10) Ondansetron HCl (Ondansetron Hcl 4 Mg/2 Ml Vial) 4 mg IVPUSH Q8H PRN PRN Reason: Nausea and Vomiting Sodium Chloride (0.9 % Sodium Chloride Flush 3 Ml Syringe) 3 ml IVFLUSH QSHIFT [facility] Last Admin: 05/22/22 23:20 Dose: 3 ml Documented By: ROSY Labs CBC & Chem 7: 05/22/22 06:53 05/22/22 06:53 Labs: Laboratory Results - last 24 hr 05/22/22 05/22/22 06:53 06:53 MCV 93.4 MCH 32.6 MCHC 34.9 RDW 12.1 Plt Count 234 MPV 10.7 Immature Gran % (Auto) 0.2 Neut % (Auto) 59.8 Lymph % (Auto) 31.7 [place] % (Auto) 6.1 Eos % (Auto) 1.7 Baso % (Auto) 0.5 Lymph # (Auto) 3.0 [place] # (Auto) 0.6 Eos # (Auto) 0.2 Baso # (Auto) 0.1 Abs Immat Gran (auto) 0.02 Absolute Neuts (auto) 5.7 Absolute Nucleated RBC 0.000 Nucleated RBC % (auto) 0.0 Anion Gap 14 Estim Creat Clear Calc 186.2 Estimated GFR > 60 Random Glucose 94 Calcium 8.8 D Total Bilirubin 0.6 Direct Bilirubin 0.2 AST 21 ALT 70 H Alkaline Phosphatase 77 Total Protein 6.5 D Albumin 3.8 D Microbiology Microbiology Results: Microbiology 05/21/22 22:00 Blood Culture - Preliminary Blood - Venous No growth after 24 hours. 05/21/22 21:56 Blood Culture - Preliminary Blood - Venous No growth after 24 hours. Procedures Date of Service Date of Service: 05/23/22 Progress Note: A&P Assessment and plan (1) Abdominal pain: Status: Acute Assessment and Plan: resolved completely denies any pain or tenderness since yesterday says he had a good night asking to be discharged - he states he has to help out with arrangements for a family member doing very well otherwise diet as tolerated and DC home once tolerating regular diet explained to patient to see me in the office for follow-up Time Spent With Patient Time: Total time spent is greater than 50% in coordination of care (as documented) at patient's floor/unit and/or counseling patient: Quality Stroke Does the patient have a stroke diagnosis?: No VTE Prior VTE?: No VTE Risk Level:: Medical - low VTE Device Contraindication: N/A - Device Ordered VTE Drug Contraindication: Treatment Not Indicated
--- NOTE | 2022-05-23 09:33 | MHC.CM.PN ---
Addendum entered by Jacklyn Fuller 05/23/22 11:13: PLAN FOR PATIENT TO D/C TODAY. Original Note: Meet with patient for discharge planning needs. Patient from home w/ no services. Needs PCP- requesting appt w/ Riley Bhatia CM office attempting to make new pt appt.IMM delivered. Has transportation @ d/c. D/C plan home no services.
--- NOTE | 2022-05-25 11:57 | P.DS_ITS ---
DS: Providers Provider Date of Service: 05/23/22 Date of admission: 05/22/22 02:39 Primary care physician: None Physician DS: Diagnosis Discharge Diagnosis (1) Abdominal pain: Status: Acute DS: Summary Hospital Course Hospital Course: 32-year-old male admitted to the hospital on 05/22/2022 because of abdominal pain. He describes this as vague, involving the entire abdomen as well as the chest. He had a CAT scan showing gallstone. However, by the time I saw him, he not have any pain nor tenderness. I admitted him to be observed. He did not have any recurrence of the pain and was not tender throughout his stay. I did offer him the option of proceeding with cholecystectomy in view of his gallstones. He declined at that point. He did state that he will see me in the office for follow-up if he decides to schedule this as an outpatient. Time Spent with Patient Time attestation: Total time spent providing and/or coordinating discharge services: Discharge coordination time: Less than 30 minutes Quality: Safe Use of Opioids Does Pt have an Active Cancer Diagnosis on the Problem List?: No Quality: Stroke Does the patient have a stroke diagnosis?: No Physical Exam Vital Signs: Vital Signs: Last Vital Signs Temp 97 F 05/23/22 06:59 Pulse 56 05/23/22 06:59 Resp 61 H 05/23/22 06:59 BP 150/65 H 05/23/22 06:59 Pulse Ox 97 05/23/22 06:59 O2 Del Method 05/23/22 06:59 BMI result Body Mass Index 32.3 DS: Data Data Completed and Pending Labs on day of discharge: Preliminary micro results at discharge 05/21/22 22:00 Blood Culture - Preliminary Blood - Venous No growth after 48 hours. 05/21/22 21:56 Blood Culture - Preliminary Blood - Venous No growth after 48 hours. Laboratory Results WBC 9.5 X10*3/uL (4.8-10.8) 05/22/22 06:53 RBC 4.23 X10*6/uL (4.60-5.80) L 05/22/22 06:53 Hgb 13.8 g/dl (14.0-18.0) L 05/22/22 06:53 Hct 39.5 % (42.0-52.0) L 05/22/22 06:53 MCV 93.4 fL (80.0-98.0) 05/22/22 06:53 MCH 32.6 pg (27.0-33.0) 05/22/22 06:53 MCHC 34.9 g/dl (31.0-36.0) 05/22/22 06:53 RDW 12.1 % (11.0-16.0) 05/22/22 06:53 Plt Count 234 X10*3/uL (160-400) 05/22/22 06:53 MPV 10.7 fL (9.4-12.4) 05/22/22 06:53 Immature Gran % (Auto) 0.2 % (0.0-0.4) 05/22/22 06:53 Neut % (Auto) 59.8 % (45-73) 05/22/22 06:53 Lymph % (Auto) 31.7 % (20-40) 05/22/22 06:53 [place] % (Auto) 6.1 % (2-11) 05/22/22 06:53 Eos % (Auto) 1.7 % (0-4) 05/22/22 06:53 Baso % (Auto) 0.5 % (0-2) 05/22/22 06:53 Lymph # (Auto) 3.0 X10*3/uL (1.2-4.9) 05/22/22 06:53 [place] # (Auto) 0.6 X10*3/uL (0.1-1.2) 05/22/22 06:53 Eos # (Auto) 0.2 X10*3/uL (0.0-0.4) 05/22/22 06:53 Baso # (Auto) 0.1 X10*3/uL (0.0-0.2) 05/22/22 06:53 Abs Immat Gran (auto) 0.02 X10*3/uL (0.00-0.03) 05/22/22 06:53 Absolute Neuts (auto) 5.7 x10*3/uL (2.0-8.3) 05/22/22 06:53 Absolute Nucleated RBC 0.000 X10*3/uL (0.0-0.012) 05/22/22 06:53 Nucleated RBC % (auto) 0.0 /100WBC (0.0-0.2) 05/22/22 06:53 Sodium 142 mmol/L (135-145) 05/22/22 06:53 Potassium 3.7 mmol/L (3.3-5.1) 05/22/22 06:53 Chloride 107 mmol/L (96-108) 05/22/22 06:53 Carbon Dioxide 25 mmol/L (22-29) 05/22/22 06:53 Anion Gap 14 (12-20) 05/22/22 06:53 BUN 9 mg/dL (9-16) 05/22/22 06:53 Creatinine 0.78 mg/dL (0.5-1.4) 05/22/22 06:53 Estim Creat Clear Calc 186.2 05/22/22 06:53 Estimated GFR > 60 05/22/22 06:53 Random Glucose 94 mg/dL (60-115) 05/22/22 06:53 Lactic Acid 1.7 mmol/L (0.5-2.0) 05/21/22 21:56 Calcium 8.8 mg/dL (8.4-10.2) D 05/22/22 06:53 Magnesium 2.1 mg/dL (1.6-2.6) 05/21/22 19:05 Total Bilirubin 0.6 mg/dL (0.0-1.0) 05/22/22 06:53 Direct Bilirubin 0.2 mg/dL (0.0-0.5) 05/22/22 06:53 AST 21 U/L (5-37) 05/22/22 06:53 ALT 70 U/L (0-40) H 05/22/22 06:53 Alkaline Phosphatase 77 U/L (39-117) 05/22/22 06:53 Total Protein 6.5 g/dL (6.5-8.0) D 05/22/22 06:53 Albumin 3.8 g/dL (3.5-5.0) D 05/22/22 06:53 Lipase 14 U/L (8-78) 05/21/22 19:05 Urine Color Yellow 05/22/22 01:21 Urine Appearance Clear 05/22/22 01:21 Urine pH 6.5 (5.0-9.0) 05/22/22 01:21 Ur Specific [place] >= 1.030 (1.005-1.025) H 05/22/22 01:21 Urine Protein Negative mg/dL (Neg-Trace) 05/22/22 01:21 Urine Glucose (UA) Negative mg/dL (Negative) 05/22/22 01:21 Urine Ketones Negative mg/dL (Negative) 05/22/22 01:21 Urine Blood Negative (Negative) 05/22/22 01:21 Urine Nitrite Negative (Negative) 05/22/22 01:21 Ur Leukocyte Esterase Negative (Negative) 05/22/22 01:21 Urine Opiates Screen Not Detected (Not Detect) 05/22/22 01:21 Urine Fentanyl Screen Not Detected (Not Detect) 05/22/22 01:21 Ur Barbiturates Screen Not Detected (Not Detect) 05/22/22 01:21 Ur Phencyclidine Scrn Not Detected (Not Detect) 05/22/22 01:21 Ur Amphetamines Screen Not Detected (Not Detect) 05/22/22 01:21 U Benzodiazepines Scrn Not Detected (Not Detect) 05/22/22 01:21 Urine Cocaine Screen Not Detected (Not Detect) 05/22/22 01:21 U Marijuana (THC) Screen POSITIVE (Not Detect) H 05/22/22 01:21 Ethyl Alcohol < 10 mg/dL 05/21/22 19:05 COVID-19 (NICOLA) Negative (Negative) 05/21/22 19:05 COVID-19 Clin Com See Note 05/21/22 19:05 Impressions Abdomen/Pelvis CT 05/21/22 21:25 IMPRESSION: Gallstones. No definite acute inflammatory changes. Normal appendix. Fleischner guidelines were followed. Abdomen Ultrasound 05/22/22 02:10 IMPRESSION: Cholelithiasis with mild gallbladder wall thickening, concerning for acute cholecystitis in the proper clinical setting. Discharge Plan Discharge Anticipated Discharge Date/Time: 05/23/22 09:08 Patient Disposition: Home, Self-Care Discharge Diagnosis: abdominal pain, gallstones Referrals: Marc Reid MD [Physician] - 2 Weeks Physician,None [Primary Care Provider] - 1 Week Discharge Medications: No Action No Known Home Meds Discharge Orders: Discharge Order (Routine); Ordered 05/23/22 Ordered By: Marc Reid Activity on Discharge: As tolerated Stand Alone Forms: Patient Portal Discharge page Activity Restrictions/Additional Instructions: call the office for follow-up [phone] return to ER if with recurrent problems Care Plan Goals: evaluate possible gallbladder problem Health Concerns: gallstone Plan of Treatment: office follow-up Assessment: doing well and symptomatic Discharge Date/Time: 05/23/22 10:38
--- NOTE | 2022-05-27 09:06 | PM.DS ---
DS: Providers Provider Date of Service: 05/23/22 <Shakira Mckeon PA-C - Last Filed: 05/27/22 09:07> Date of admission: 05/22/22 02:39 <Shakira Mckeon PA-C - Last Filed: 05/27/22 09:07> Primary care physician: Radha Physician <Shakira Mckeon PA-C - Last Filed: 05/27/22 09:07> Attending physician on admission: Marc Reid <TRUNG Saunders Last Filed: 05/27/22 09:07> Attending physician on discharge: Marc Reid <Shakira Mckeon PA-C - Last Filed: 05/27/22 09:07> DS: Diagnosis Discharge Diagnosis (1) Abdominal pain: Status: Acute <Shakira Mckeon PA-C - Last Filed: 05/27/22 09:07> DS: Summary Hospital Course Hospital Course: 32-year-old male admitted to the hospital on 05/22/2022 because of abdominal pain. He describes this as vague, involving the entire abdomen as well as the chest. He had a CAT scan showing gallstone. However, by the time I saw him, he not have any pain nor tenderness. I admitted him to be observed. He did not have any recurrence of the pain and was not tender throughout his stay. I did offer him the option of proceeding with cholecystectomy in view of his gallstones. He declined at that point. He did state that he will see me in the office for follow-up if he decides to schedule this as an outpatient. <Shakira Mckeon PA-C - Last Filed: 05/27/22 09:07> Time Spent with Patient Time attestation: Total time spent providing and/or coordinating discharge services: <Shakira Mckeon PA-C - Last Filed: 05/27/22 09:07> Discharge coordination time: Less than 30 minutes <Marc Reid MD - Last Filed: 05/27/22 10:03> Quality: Safe Use of Opioids Does Pt have an Active Cancer Diagnosis on the Problem List?: No <Marc Reid MD - Last Filed: 05/27/22 10:03> Quality: Stroke Does the patient have a stroke diagnosis?: No <Marc Reid MD - Last Filed: 05/27/22 10:03> Physical Exam Vital Signs: Vital Signs: Last Vital Signs Temp 97 F 05/23/22 06:59 Pulse 56 05/23/22 06:59 Resp 61 H 05/23/22 06:59 BP 150/65 H 05/23/22 06:59 Pulse Ox 97 05/23/22 06:59 O2 Del Method 05/23/22 06:59 BMI result Body Mass Index 32.3 <Shakira Mckeon PA-C - Last Filed: 05/27/22 09:07> Discharge Plan Discharge Anticipated Discharge Date/Time: 05/23/22 09:08 <Shakira Mckeon PA-C - Last Filed: 05/27/22 09:07> Patient Disposition: Home, Self-Care <Shakira Mckeon PA-C - Last Filed: 05/27/22 09:07> Discharge Diagnosis: abdominal pain, gallstones <Shakira Mckeon PA-C - Last Filed: 05/27/22 09:07> abdominal pain, gallstones <Marc Reid MD - Last Filed: 05/27/22 10:03> Referrals: Marc Reid MD [Physician] - 2 Weeks Physician,None [Primary Care Provider] - 1 Week <Shakira Mckeon PA-C - Last Filed: 05/27/22 09:07> Discharge Medications: No Action oxycodone 5 mg tablet 5 mg PO Q4H PRN (Reason: pain (scale score 7-10)) Qty: 26 0RF Rx Instructions: Partial Fill upon patient request. ibuprofen 800 mg tablet 800 mg PO TID PRN (Reason: abdominal pain) Qty: 30 0RF <Shakira Mckeon PA-C - Last Filed: 05/27/22 09:07> Discharge Orders: Discharge Order (Routine); Ordered 05/23/22 Ordered By: Marc Reid <Shakira Mckeon PA-C - Last Filed: 05/27/22 09:07> Activity on Discharge: As tolerated <Shakira Mckeon PA-C - Last Filed: 05/27/22 09:07> As tolerated <Marc Reid MD - Last Filed: 05/27/22 10:03> Stand Alone Forms: Patient Portal Discharge page <TRUNG Saunders Last Filed: 05/27/22 09:07> Activity Restrictions/Additional Instructions: call the office for follow-up [phone] return to ER if with recurrent problems <TRUNG Saunders Last Filed: 05/27/22 09:07> Care Plan Goals: evaluate possible gallbladder problem <Shakira Mckeon PA-C - Last Filed: 05/27/22 09:07> Health Concerns: gallstone <Shakira Mckeon PA-C - Last Filed: 05/27/22 09:07> Plan of Treatment: office follow-up <Shakira Mckeon PA-C - Last Filed: 05/27/22 09:07> Assessment: doing well and symptomatic <Shakira Mckeon PA-C - Last Filed: 05/27/22 09:07> Discharge Date/Time: 05/23/22 10:38 <Shakira Mckeon PA-C - Last Filed: 05/27/22 09:07>
== END 2022-05-23 10:38 | disposition home or self-care (01) | DRG 446 ==
LOC: HO.ED 05-22 02:14 → HO.EDOVER 05-22 02:53 → HO.S3 05-22 11:51
PROVIDERS: Physician Assistant; Admitting Provider Surgery; Emergency Provider Student in an Organized Health Care Education/Training Program; Visit Provider Surgery
DX: K80.80 Other cholelithiasis without obstruction (principal); F17.210 Nicotine dependence, cigarettes, uncomplicated; Z71.6 Tobacco abuse counseling; Z20.822 Contact with and (suspected) exposure to COVID-19
CPT/HCPCS: 36415; 74177; 76705; 80048; 80076; 80307; 81003; 82077; 83605; 83690; 83735; 85025; 87040; 87635; 99285; J1170; J2405; J2543; Q9967

== ENCOUNTER 2022-05-26 06:14 | Inpatient (IN) | payer MEDICARE, MEDICAID, SELFPAY ==
[2022-05-26] VITALS (14 sets, daily range): BP systolic 103–152; BP diastolic 53–88; PULSE 49–77; RESP 12–18; TEMP 36.2–36.7; O2SAT 94–100; BMI 28.7
--- NOTE | ~2022-05-26 | US_ITS ---
EXAMINATION: US ABDOMEN LIMITED CLINICAL INFORMATION: Right upper quadrant pain. COMPARISON: 05/22/2022 TECHNIQUE: Real-time imaging of the gallbladder. FINDINGS: GALLBLADDER: Stones are seen in the gallbladder lumen, some of which are impacted in the neck of the gallbladder. There is also echogenic bile present. There is gallbladder wall thickening, focally measuring 0.6 cm, with the remainder of the wall measuring 0.3 cm. There is no wall edema or pericholecystic fluid, with some improvement in the appearance of the wall. COMMON BILE DUCT: Normal in caliber measuring 0.4 cm in diameter. FREE FLUID: None. US/US abdomen limited IMPRESSION: Cholelithiasis. Some of the stones are impacted in the neck of the gallbladder. There is focal gallbladder wall thickening, with otherwise some improvement in the appearance of the gallbladder wall. No wall edema or pericholecystic fluid. This could represent acute cholecystitis in the appropriate clinical setting. If clinically indicated, nuclear medicine biliary scan could be performed.
[2022-05-26] MEDS: ondansetron HCL 4 MG/2 ML VIAL IVPUSH (06:55)
--- NOTE | 2022-05-26 06:55 | ED_ITS ---
HPI - Abdominal Pain General Chief Complaint: Abdominal Pain Stated Complaint: RUQ PAIN RECENT GB ISSUE PER EMS Time Seen by Provider: 05/26/22 06:35 Source: patient and old records reviewed Mode of arrival: ambulatory Limitations: no limitations History of Present Illness HPI narrative: 32 yo male seen recently here and admitted 05/22 to 05/23 for gallstones and RUQ pain ended up leaving due to for family member. Comes back to ED tonight c/o pain after eating sushi and ramen states he cannot take the pain anymore or wait for surgery. Has had n/v. MD elicited complaint: abdominal pain Pertinent past history: other (gallstones) Onset (ago): hour(s) (few) Pain Consistency: constant Location: RUQ Severity: moderate Quality: stabbing Radiation: none Migration to: no migration Exacerbating factors: eating Relieving factors: nothing Context: history of similar episodes Associated symptoms: nausea and vomiting Related Data Home Medications Medication Instructions Recorded Confirmed No Known Home Meds 05/22/22 05/26/22 Allergies Allergy/AdvReac Type Severity Reaction Status Date / Time No Known Allergies Allergy Verified 03/27/21 19:24 Review of Systems Review of Systems Constitutional : No Weight loss, No Fever, No Chills ENT/Mouth : No sore throat, No Rhinorrhea Eyes: No Swelling, No Redness Cardiovascular : No Chest Pain, No SOB, NoEdema Respiratory : No Cough, No Sputum, No Wheezing Gastrointestinal : Positive Nausea, Positive Vomiting, no Diarrhea, positive abdominal Pain, No Hematochezia, No Melena Genitourinary : No Dysuria, No Urinary Frequency, No Hematuria, No Urgency Musculoskeletal : No joint pain, No Myalgias, No Joint Swelling Skin : No Skin Lesions, No rash Neuro : No Weakness, No Numbness, No Dizziness, No Headache Psych : No Anxiety/Panic, No Depression Heme/Lymph: No Bruising, No Lymphadenopathy Endocrine : No Polyuria, No Polydipsia All other systems reviewed and are negative. [facility] Past Medical History Attestation statement: The following information was validated with the patient. Medical History Gallstones No known health problems Surgical History No history of previous surgery Social History Social History Household Members: Family Housing: Apartment Do you presently have visiting nurse or other home services: No Alcohol intake: current Alcohol intake frequency: a few times a month Patient Tobacco Use Status: Current everyday Tobacco user Tobacco use type: Cigarette Smoked in Last 30 Days: Yes Use of substances other than those prescribed or required for medical reasons: No Substance Use Type: Marijuana Advance Directives: No service: No Current occupational status: disabled Physical Exam ED Vital Signs: Vital Signs - 24 hr 05/26/22 06:20 05/26/22 08:04 Temperature 97.8 F 98.0 F Pulse Rate 53 61 Respiratory Rate 16 16 Blood Pressure 135/82 103/53 L Pulse Oximetry 98 94 Oxygen Delivery Method Room Air Room Air BMI result Body Mass Index 28.7 Appearance: Alert. Oriented X3. No acute distress. Eyes: Pupils equal, round and reactive to light. ENT: Pharynx normal. Neck: Normal inspection. Neck supple. CVS: Normal heart rate and rhythm. Pulses normal. Respiratory: No respiratory distress. Breath sounds normal. Abdomen: Soft and moderate RUQ ttp + rey's no rebound Skin: Skin warm and dry. Normal skin color. Normal skin turgor. Extremities: No lower extremity edema. No calf ttp Neuro: Oriented X 3. No motor deficit. No sensory deficit. Course Course Course Narrative: message sent to Dr. Francois 808am - he's in OR will send to Franklin Reid to come see patient MDM - Abdominal Pain MDM Narrative Medical decision making narrative: 32 yo male with known gallstones here with c/o RUQ pain was recently admitted for surgery but could not stay in hospital. At this time back with pain and n/v/ - labs IVF, IV toradol for pain ordered, US of GB ordered. Possible admit pending discussion with surgery. Lab Data Result diagrams: 05/26/22 06:49 05/26/22 06:49 Labs: Lab Results 05/26/22 05/26/22 05/26/22 Range/Units 06:49 06:49 06:49 WBC 8.2 (4.8-10.8) X10*3/uL RBC 4.44 L (4.60-5.80) X10*6/uL Hgb 14.4 (14.0-18.0) g/dl Hct 41.8 L (42.0-52.0) % MCV 94.1 (80.0-98.0) fL MCH 32.4 (27.0-33.0) pg MCHC 34.4 (31.0-36.0) g/dl RDW 12.2 (11.0-16.0) % Plt Count 261 (160-400) X10*3/uL MPV 10.4 (9.4-12.4) fL Immature Gran % (Auto) 0.5 H (0.0-0.4) % Neut % (Auto) 59.2 (45-73) % Lymph % (Auto) 28.4 (20-40) % [place] % (Auto) 7.0 (2-11) % Eos % (Auto) 4.0 (0-4) % Baso % (Auto) 0.9 (0-2) % Lymph # (Auto) 2.3 (1.2-4.9) X10*3/uL [place] # (Auto) 0.6 (0.1-1.2) X10*3/uL Eos # (Auto) 0.3 (0.0-0.4) X10*3/uL Baso # (Auto) 0.1 (0.0-0.2) X10*3/uL Abs Immat Gran (auto) 0.04 H (0.00-0.03) X10*3/uL Absolute Neuts (auto) 4.8 (2.0-8.3) x10*3/uL Absolute Nucleated RBC 0.000 (0.0-0.012) X10*3/uL Nucleated RBC % (auto) 0.0 (0.0-0.2) /100WBC Sodium 142 (135-145) mmol/L Potassium 4.3 (3.3-5.1) mmol/L Chloride 109 H (96-108) mmol/L Carbon Dioxide 19 L (22-29) mmol/L Anion Gap 18 (12-20) BUN 15 D (9-16) mg/dL Creatinine 0.79 (0.5-1.4) mg/dL Estim Creat Clear Calc 173.8 Estimated GFR > 60 Random Glucose 93 (60-115) mg/dL Calcium 8.8 (8.4-10.2) mg/dL Magnesium 2.1 (1.6-2.6) mg/dL Total Bilirubin 0.3 (0.0-1.0) mg/dL Direct Bilirubin < 0.2 (0.0-0.5) mg/dL AST 34 D (5-37) U/L ALT 78 H (0-40) U/L Alkaline Phosphatase 80 (39-117) U/L Total Protein 7.3 (6.5-8.0) g/dL Albumin 4.0 (3.5-5.0) g/dL Lipase 24 (8-78) U/L COVID-19 ([facility]) Negative (Negative) COVID-19 Clin Com See Note Discharge Plan Discharge Clinical Impression: Gallstones Abdominal pain Qualifiers: Abdominal location: right upper quadrant Qualified Code(s): R10.11 - Right upper quadrant pain Patient Disposition: Admitted As Inpatient
[2022-05-26] MEDS: Ketorolac Tromethamine 30 MG/ML VIAL IVPUSH (06:56)
[2022-05-26] MEDS: 0.9 % Sodium Chloride 1,000 ML 999 ML IV (06:56)
[2022-05-26 07:06] LABS: MANUAL DIFF FLAG NO
[2022-05-26 07:09] LABS: Basophils Absolute Auto 0.1 X10*3/uL (0.0-0.2); Basophils Percent Auto 0.9 % (0-2); Eosinophils Absolute Auto 0.3 X10*3/uL (0.0-0.4); Hematocrit 41.8 % (42.0-52.0); Hemoglobin 14.4 g/dl (14.0-18.0); Imm Gran Abs Auto 0.04 X10*3/uL (0.00-0.03); Imm Gran Pct Auto 0.5 % (0.0-0.4); Lymphocytes Absolute Auto 2.3 X10*3/uL (1.2-4.9); Lymphocytes Percent Auto 28.4 % (20-40); Mean Corpuscular HGB Conc 34.4 g/dl (31.0-36.0); Mean Corpuscular Hemoglobin 32.4 pg (27.0-33.0); Mean Corpuscular Volume 94.1 fL (80.0-98.0); Mean Platelet Volume 10.4 fL (9.4-12.4); Monocytes Absolute Auto 0.6 X10*3/uL (0.1-1.2); Neutrophils Absolute Auto 4.8 x10*3/uL (2.0-8.3); Neutrophils Percent Auto 59.2 % (45-73); Platelet Count 261 X10*3/uL (160-400); Red Blood Count 4.44 X10*6/uL (4.60-5.80); Red Cell Distribution Width 12.2 % (11.0-16.0); White Blood Count 8.2 X10*3/uL (4.8-10.8)
[2022-05-26 07:40] LABS: COVID-19 Test Negative (Negative)
[2022-05-26 07:45] LABS: Alanine Aminotransferase 78 U/L (0-40); Alkaline Phosphatase 80 U/L (39-117); Anion Gap 18 (12-20); Aspartate Amino Transferase 34 U/L (5-37); Blood Urea Nitrogen 15 mg/dL (9-16); Calcium 8.8 mg/dL (8.4-10.2); Carbon Dioxide 19 mmol/L (22-29); Chloride 109 mmol/L (96-108); Creatinine Clr Calc Pharmacy 173.8; Estimated Glomerular Filt Rate > 60; Glucose Random 93 mg/dL (60-115); Lipase 24 U/L (8-78); Magnesium 2.1 mg/dL (1.6-2.6); Potassium 4.3 mmol/L (3.3-5.1); Sodium 142 mmol/L (135-145); Total Protein 7.3 g/dL (6.5-8.0)
--- NOTE | 2022-05-26 08:15 | PHA.MEDREC ---
Pharmacy Consult ? Medication Reconciliation Pharmacy has completed the medication reconciliation. Patient just discharged on 05/23 with no medications. Thi Godfrey, MarjorieD
[2022-05-26] MEDS: 0.9 % Sodium Chloride 1,000 ML 100 ML IVCONT ×2 (08:24→14:05)
[2022-05-26 08:27] LABS: Bilirubin Direct < 0.2 mg/dL (0.0-0.5); Bilirubin Total 0.3 mg/dL (0.0-1.0)
--- NOTE | 2022-05-26 08:31 | PM.HPGS ---
History of Present Illness History of Present Illness Date of Service: 05/30/22 Chief complaint: gallstones Narrative: Ger Brito is a 32 year old male here in the ED for abdominal pain. He describes this as being on the right side, mostly upper, near the ribs. This started around 530 this morning. He took some Ibuprofen without relief so he came to the ED. He was admitted last March for vague abdominal pains as well with imaging studies showing gallstones. However, his pain had resolved and I told him we can do cholecystectomy at that time before discharge. He had to help out with arrangements for his mother in law so he said he would hold off surgery and just see me in the office. He had been doing well since that time until this new episode. He denies nausea or vomitting or other GI complaints. Review of Systems Constitutional: Constitutional: Denies chills and Denies fever(s) Cardiovascular: Cardiovascular: Denies chest pain, Denies dyspnea and Denies dyspnea on exertion Respiratory: Respiratory: Denies cough, Denies dyspnea and Denies dyspnea on exertion Gastrointestinal: Gastrointestinal: Denies hematochezia and Denies change in bowel habits Genitourinary: Genitourinary: Denies hematuria and Denies difficulty urinating Musculoskeletal: Musculoskeletal: Denies back pain and Denies limited range of motion Neurologic: Denies focal weakness and Denies convulsions Psychiatric: Psychiatric: Denies depression and Denies mood swings PMFSH Past Medical History Medical History Gallstones No known health problems Surgical History Surgical History No history of previous surgery Social History Social History Household Members: Family Housing: Apartment Do you presently have visiting nurse or other home services: No Alcohol intake: current Alcohol intake frequency: a few times a month Patient Tobacco Use Status: Current everyday Tobacco user Tobacco use type: Cigarette Substance Use Type: Marijuana service: No Current occupational status: disabled Meds Allergies Allergy/AdvReac Type Severity Reaction Status Date / Time No Known Allergies Allergy Verified 03/27/21 19:24 Active Medications: Current Medications Sodium Chloride (Ns) 1,000 mls @ 100 mls/hr IVCONT .Q10H [facility] Last Admin: 10/20/22 08:24 Dose: 100 mls/hr Physical Exam Vital Signs: Vital Signs: Last Vital Signs Temp 98.0 F 05/26/22 08:04 Pulse 61 05/26/22 08:04 Resp 16 05/26/22 08:04 BP 103/53 L 05/26/22 08:04 Pulse Ox 94 05/26/22 08:04 O2 Del Method 05/26/22 08:04 BMI result Body Mass Index 28.7 Const: General: comfortable and no acute distress Orientation/consciousness: patient oriented x3 Neck: Neck: Yes no lymphadenopathy Resp: Auscultation: clear to auscultation bilaterally Cardio: Rhythm: regular rhythm GI: Other: mild tenderness on RUQ Palpation (GI): Soft to palpation, nontender, no guarding and No Rebound tenderness present Neuro: General: patient oriented x3 Results Results Labs: Short CBC 05/26/22 Range/Units 06:49 WBC 8.2 (4.8-10.8) X10*3/uL Hgb 14.4 (14.0-18.0) g/dl Hct 41.8 L (42.0-52.0) % Plt Count 261 (160-400) X10*3/uL BMP 05/26/22 06:49 Sodium 142 Potassium 4.3 Chloride 109 H Carbon Dioxide 19 L BUN 15 D Creatinine 0.79 Calcium 8.8 Liver Function 05/26/22 Range/Units 06:49 Total Bilirubin 0.3 (0.0-1.0) mg/dL Direct Bilirubin < 0.2 (0.0-0.5) mg/dL AST 34 D (5-37) U/L ALT 78 H (0-40) U/L Alkaline Phosphatase 80 (39-117) U/L Albumin 4.0 (3.5-5.0) g/dL Additional studies: Laboratory Results WBC 8.2 X10*3/uL (4.8-10.8) 05/26/22 06:49 RBC 4.44 X10*6/uL (4.60-5.80) L 05/26/22 06:49 Hgb 14.4 g/dl (14.0-18.0) 05/26/22 06:49 Hct 41.8 % (42.0-52.0) L 05/26/22 06:49 MCV 94.1 fL (80.0-98.0) 05/26/22 06:49 MCH 32.4 pg (27.0-33.0) 05/26/22 06:49 MCHC 34.4 g/dl (31.0-36.0) 05/26/22 06:49 RDW 12.2 % (11.0-16.0) 05/26/22 06:49 Plt Count 261 X10*3/uL (160-400) 05/26/22 06:49 MPV 10.4 fL (9.4-12.4) 05/26/22 06:49 Immature Gran % (Auto) 0.5 % (0.0-0.4) H 05/26/22 06:49 Neut % (Auto) 59.2 % (45-73) 05/26/22 06:49 Lymph % (Auto) 28.4 % (20-40) 05/26/22 06:49 [place] % (Auto) 7.0 % (2-11) 05/26/22 06:49 Eos % (Auto) 4.0 % (0-4) 05/26/22 06:49 Baso % (Auto) 0.9 % (0-2) 05/26/22 06:49 Lymph # (Auto) 2.3 X10*3/uL (1.2-4.9) 05/26/22 06:49 [place] # (Auto) 0.6 X10*3/uL (0.1-1.2) 05/26/22 06:49 Eos # (Auto) 0.3 X10*3/uL (0.0-0.4) 05/26/22 06:49 Baso # (Auto) 0.1 X10*3/uL (0.0-0.2) 05/26/22 06:49 Abs Immat Gran (auto) 0.04 X10*3/uL (0.00-0.03) H 05/26/22 06:49 Absolute Neuts (auto) 4.8 x10*3/uL (2.0-8.3) 05/26/22 06:49 Absolute Nucleated RBC 0.000 X10*3/uL (0.0-0.012) 05/26/22 06:49 Nucleated RBC % (auto) 0.0 /100WBC (0.0-0.2) 05/26/22 06:49 Sodium 142 mmol/L (135-145) 05/26/22 06:49 Potassium 4.3 mmol/L (3.3-5.1) 05/26/22 06:49 Chloride 109 mmol/L (96-108) H 05/26/22 06:49 Carbon Dioxide 19 mmol/L (22-29) L 05/26/22 06:49 Anion Gap 18 (12-20) 05/26/22 06:49 BUN 15 mg/dL (9-16) D 05/26/22 06:49 Creatinine 0.79 mg/dL (0.5-1.4) 05/26/22 06:49 Estim Creat Clear Calc 173.8 05/26/22 06:49 Estimated GFR > 60 05/26/22 06:49 Random Glucose 93 mg/dL (60-115) 05/26/22 06:49 Calcium 8.8 mg/dL (8.4-10.2) 05/26/22 06:49 Magnesium 2.1 mg/dL (1.6-2.6) 05/26/22 06:49 Total Bilirubin 0.3 mg/dL (0.0-1.0) 05/26/22 06:49 Direct Bilirubin < 0.2 mg/dL (0.0-0.5) 05/26/22 06:49 AST 34 U/L (5-37) D 05/26/22 06:49 ALT 78 U/L (0-40) H 05/26/22 06:49 Alkaline Phosphatase 80 U/L (39-117) 05/26/22 06:49 Total Protein 7.3 g/dL (6.5-8.0) 05/26/22 06:49 Albumin 4.0 g/dL (3.5-5.0) 05/26/22 06:49 Lipase 24 U/L (8-78) 05/26/22 06:49 COVID-19 ([facility]) Negative (Negative) 05/26/22 06:49 COVID-19 Clin Com See Note 05/26/22 06:49 Impressions Abdomen Ultrasound 05/26/22 07:20 IMPRESSION: Cholelithiasis. Some of the stones are impacted in the neck of the gallbladder. There is focal gallbladder wall thickening, with otherwise some improvement in the appearance of the gallbladder wall. No wall edema or pericholecystic fluid. This could represent acute cholecystitis in the appropriate clinical setting. If clinically indicated, nuclear medicine biliary scan could be performed. Assessment and Plan (1) Gallstones: Status: Acute He has RUQ pain and mild tenderness. His US again shows gallstones that appear to be in the neck, with focal GB wall thickening. Since this is the second time he has been in the ED for abdominal pain, with the location of pain suggesting GB disease, I explained to him it may be best to proceed with lap alie with possible open. I reviewed the technique of these procedures. I explained the risks including but not limited to bleeding, infections, injury to bowel/liver/bile duct, bile leak, retained stones as well as the benefits and alternatives. He says he wants to proceed. His LFTs are normal. Quality Stroke Does the patient have a stroke diagnosis?: No VTE Prior VTE?: No VTE Risk Level:: Medical - low VTE Device Contraindication: N/A - Device Ordered VTE Drug Contraindication: Treatment Not Indicated Procedures Date of Service Date of Service: 05/26/22
[2022-05-26] MEDS: Lactated Ringers 1,000 ML 100 ML IVCONT (09:44)
--- NOTE | 2022-05-26 09:57 | P.CONAN_ITS ---
[facility] Active Problems Active Problems: All Active Problems (Updated 05/26/22 @ 08:08 by Monet Cortes DO) Gallstones (Acute) Cough with exposure to COVID-19 virus (Acute) Abdominal pain (Acute) Past Medical History Medical History Gallstones No known health problems Family History Family history of problems with anesthesia: No Surgical History Surgical History No history of previous surgery History of Problems with Anesthesia: No Social History Social History Household Members: Family Housing: Apartment Do you presently have visiting nurse or other home services: No Alcohol intake: current Alcohol intake frequency: a few times a month Patient Tobacco Use Status: Current everyday Tobacco user Tobacco use type: Cigarette Smoked in Last 30 Days: Yes Use of substances other than those prescribed or required for medical reasons: Yes Substance Use Type: Marijuana Are you DNR?: No Advance Directives: No service: No Current occupational status: disabled Meds Allergies Allergy/AdvReac Type Severity Reaction Status Date / Time No Known Allergies Allergy Verified 03/27/21 19:24 Active Medications: Current Medications Sodium Chloride (Ns) 1,000 mls @ 100 mls/hr IVCONT .Q10H [facility] Last Admin: 05/26/22 08:24 Dose: 100 mls/hr Sodium Chloride (Ns) 1,000 mls @ 100 mls/hr IVCONT .Q10H [facility] Morphine Sulfate (Morphine Sulfate 4 Mg/Ml Cartridge) 3 mg IVPUSH Q4H PRN; Protocol PRN Reason: Pain, Severe (Pain Scale 7-10) Ondansetron HCl (Ondansetron Hcl 4 Mg/2 Ml Vial) 4 mg IVPUSH Q8H PRN PRN Reason: Nausea and Vomiting Sodium Chloride (0.9 % Sodium Chloride Flush 3 Ml Syringe) 3 ml IVFLUSH QSHIFT [facility] Home Medications Medication Instructions Recorded Confirmed Last Taken Type No Known Home Meds 05/22/22 05/26/22 Unknown History Exam Exam Date and Time: May 26, 2022 0957 Height,Weight and Vital Signs: Height 6 ft 3 in Weight 104.326 kg Last Vital Signs Temp 97.4 F 05/26/22 09:40 Pulse 57 05/26/22 09:40 Resp 16 05/26/22 09:40 BP 116/81 05/26/22 09:40 Pulse Ox 98 05/26/22 09:40 O2 Del Method 05/26/22 09:40 Pertinent Lab Results Pertinent Lab Results: Laboratory Tests 05/26/22 05/26/22 05/26/22 06:49 06:49 06:49 WBC 8.2 RBC 4.44 L Hgb 14.4 Hct 41.8 L MCV 94.1 MCH 32.4 MCHC 34.4 RDW 12.2 Plt Count 261 MPV 10.4 Immature Gran % (Auto) 0.5 H Neut % (Auto) 59.2 Lymph % (Auto) 28.4 [place] % (Auto) 7.0 Eos % (Auto) 4.0 Baso % (Auto) 0.9 Lymph # (Auto) 2.3 [place] # (Auto) 0.6 Eos # (Auto) 0.3 Baso # (Auto) 0.1 Abs Immat Gran (auto) 0.04 H Absolute Neuts (auto) 4.8 Absolute Nucleated RBC 0.000 Nucleated RBC % (auto) 0.0 Sodium 142 Potassium 4.3 Chloride 109 H Carbon Dioxide 19 L Anion Gap 18 BUN 15 D Creatinine 0.79 Estim Creat Clear Calc 173.8 Estimated GFR > 60 Random Glucose 93 Calcium 8.8 Magnesium 2.1 Total Bilirubin 0.3 Direct Bilirubin < 0.2 AST 34 D ALT 78 H Alkaline Phosphatase 80 Total Protein 7.3 Albumin 4.0 Lipase 24 COVID-19 ([facility]) Negative COVID-19 Clin Com See Note Airway Mallampati Class: II TM Dist: >3cm Neck ROM: Full Assessment and Plan Assessment Anesthesia Assessment: Anesthesia Plan Discussed and Chart Reviewed Final Anesthetic Review Family History of Problems with Anesthesia: No History of Problems with Anesthesia: No NPO: Yes ASA Class: II and Emergency Final Preanesthetic Review: No Changes in Pt Med Stat, Meds/Allgs Chart Reviewed, Consent Obtained/Reviewed and Anes Risks/Benef Reviewed Patient Risk: Intermediate Procedure Risk: Intermediate Anesthetic Plan Anesthetic Plan: GA and Regional Block
--- NOTE | 2022-05-26 10:16 | PM.DS ---
DS: Providers Provider Date of Service: 05/27/22 Date of admission: 05/26/22 08:40 Primary care physician: None Physician Attending physician on admission: Marc Reid Consults: 05/26/22 08:10 Consult to General Surgery Routine Consulting Provider: Marc Reid Reason for consultation: RUQ pain, gallstones Has provider been notified: Yes Attending physician on discharge: Marc Reid DS: Diagnosis Discharge Diagnosis (1) Gallstones: Status: Acute DS: Summary Hospital Course Hospital Course: BRIEF HPI: Ger Brito is a 32 year old male here in the ED for abdominal pain. He describes this as being on the right side, mostly upper, near the ribs. This started around 530 this morning. He took some Ibuprofen without relief so he came to the ED. He was admitted a week prior for vague abdominal pains and imaging studies showing gallstones. However, his pain had resolved and I told him we can do cholecystectomy at that time before discharge. He had to help out with arrangements for his mother in law so he said he would hold off surgery and just see me in the office. He had been doing well since that time until this new episode. He denies nausea or vomiting or other GI complaints. His US during this visit showed gallstones in the neck with focal GB wall thickening. He has RUQ pain and mild tenderness. HOSPITAL COURSE: Since it was the second time he has been in the ED for abdominal pain, with the location of pain suggesting GB disease, it was recommended to proceed with lap alie with possible open. He agreed to proceed. He was added onto the OR schedule for that day. On 05/26/22, a laparoscopic cholecystectomy was performed by Dr. Reid without complication. The patient tolerated the procedure well. He was seen later in the evening and felt well. He was tolerating a solid diet without nausea or vomiting. His pain was well controlled. He was OOB and ambulating without difficulty. His vitals were stable and abdomen was benign with intact dressings. He felt ready for discharge. He was discharged to home on 05/26/22 in stable condition. He is to follow up with Dr. Reid in office in 2 weeks. Status at Discharge Functional status at discharge: independent ambulation Overall status at discharge: patient is progressing back to baseline Time Spent with Patient Time attestation: Total time spent providing and/or coordinating discharge services: Discharge coordination time: Greater than 30 minutes Quality: Safe Use of Opioids Does Pt have an Active Cancer Diagnosis on the Problem List?: No Quality: Stroke Does the patient have a stroke diagnosis?: No Physical Exam Vital Signs: Vital Signs: Last Vital Signs Temp 97.1 F 05/26/22 16:00 Pulse 60 05/26/22 16:00 Resp 16 05/26/22 16:00 BP 104/54 L 05/26/22 16:00 Pulse Ox 96 05/26/22 16:00 O2 Del Method 05/26/22 16:00 O2 Flow Rate 2 05/26/22 13:04 BMI result Body Mass Index 28.7 Const: General: comfortable, no acute distress and alert Orientation/consciousness: patient oriented x3 Resp: Effort & Inspection: normal respiratory effort GI: Inspection: No distended and Yes incision (dressings intact) Palpation (GI): Soft to palpation, Tenderness to palpation present (GI) (incisional, appropriate), no guarding and not rigid Skin: General skin exam: no rashes or lesions noted Neuro: General: patient oriented x3 Extrem: General: Yes no clubbing, cyanosis or edema DS: Data Data Completed and Pending Pending studies at discharge: Pending at discharge 05/26/22 11:05 Surgical [PTH] Routine Discharge Plan Discharge Anticipated Discharge Date/Time: 05/27/22 13:18 Patient Disposition: Home, Self-Care Discharge Diagnosis: gallstones, s/p laparoscopic cholecystectomy Referrals: Marc Reid MD [Physician] - 2 Weeks Physician,None [Primary Care Provider] - 1 Week Discharge Medications: New oxycodone 5 mg tablet 5 mg PO Q4H PRN (Reason: pain (scale score 7-10)) Qty: 26 0RF Rx Instructions: Partial Fill upon patient request. ibuprofen 800 mg tablet 800 mg PO TID PRN (Reason: abdominal pain) Qty: 30 0RF Discharge Orders: Discharge Order (Routine); Ordered 05/26/22 Ordered By: Marc Reid Diet: Low fat, low cholesterol Activity on Discharge: No heavy lifting Stand Alone Forms: Patient Portal Discharge page Activity Restrictions/Additional Instructions: If the incision area is tender, you may apply an ice pack for short intervals (No more than 20 minutes on, followed by at least 20 minutes off). Do not apply heat. Do not use creams, lotions, or topical antibiotics unless instructed to do so by your surgeon. These can cause infection or allergic reaction. Ok to shower 24 hours after your surgery. Remove bandaids in 2 days and replace. You have steri strips (small white cloth strips) covering your incision- these will fall off ~1 week. Follow up in office with Dr. Reid in 2 weeks. ([phone]) No heavy lifting (>10-20lbs) or strenuous activity! Call Your Doctor If: -Your temperature exceeds 101.5? F -You experience excessive pain or swelling -You have an unexpected reaction to medication -You have excessive bleeding -You experience continued vomiting/nausea -Your incision begins to separate -Your incision shows signs of infection such as increased redness, swelling, excessive pain, drainage (light blood or clear fluid is normal) or heat Care Plan Goals: Return to baseline health and gradual return to activity following recovery period. Health Concerns: Gallstones Plan of Treatment: S/p laparoscopic cholecystectomy F/u in office with Dr. Reid 2 weeks Low fat diet No heavy lifting Assessment: Doing well post op. Discharge Date/Time: 05/26/22 18:53
--- NOTE | 2022-05-26 11:23 | P.OP_ITS ---
Operative Note Operative Note Date of Service: 05/26/22 Narrative: Preop diagnosis: acute cholecystitis Postop diagnosis: Acute cholecystitis with gallbladder hydrops; large stone impacted on the neck Procedure: Laparoscopic cholecystectomy Surgeon: Marc Reid MD assistant professor of history: DONNA Mckeon The patient is a 32-year-old male admitted for right upper quadrant pain. He had an ultrasound showing gallstones with focal thickening of the gallbladder wall. He was tender on the right upper quadrant. Been recently in the hospital about a few days go for abdominal pain as well with the same ultrasound finding. I therefore told him that it would be best to proceed with cholecystectomy. He understood the technique of the laparoscopic cholecystectomy. He was aware of the risks, benefits, and alternatives. He was brought to the operating room. He was placed supine under general anesthesia via endotracheal tube. The abdomen was prepped and draped in the usual sterile fashion. A surgical time-out was done. The patient received Cefotan 2 g IV preoperatively I made a short supraumbilical incision using blade 15. This was carried down through the full-thickness of the skin subcutaneous fat down to the fascia. The fascia was incised. The peritoneum was entered. Through this incision a Birgit port was introduced. Pneumoperitoneum was introduced to a pressure of 15 was hg. From here on the rest of the procedure was done under vision with a 10 mm flat laparoscope. With laparoscopic visualization inserted a 5/12 mm to the epigastric area below the subcostal margin. Two 5 mm ports introduced a small incisions below the subcostal margin along the anterior axillary line and the midclavicular line. Graspers were placed through these working ports. The patient placed in head-up and [id number] position The gallbladder was then analyzed. This appeared to be edematous, with erythema and distension. Her able to apply grasper at the fundus and this was used used to retract the gallbladder cephalad. Another grasper was applied at the pouch of the gallbladder and this was used to retract the gallbladder laterally. At this point therefore the gallbladder was being retracted in a cephalad and lateral fashion to put the cystic duct on stretch. There was note of stone stuck on the neck of the gallbladder. We were able to milk of this up to release this from the impaction. I was able to therefore gently dissect the cystic duct with the [place] dissector. By doing so was able to confirm the fluids of the neck of the gallbladder with the cystic duct. A critical view of the hepatocystic triangle was also achieved At this point were able to therefore clearly view the cystic duct. I applied clips with 2 clips being applied distally.The cystic duct was transected between clips with Endo scissors. I gently dissected the rest of the hilum using the [place] dissector until I was able to clearly identify the cystic artery. Clips were applied and this was transected between clips with Endo scissors as well. With retraction on the gallbladder wall away from the liver bed, I proceeded then gently divide across the rest of the hilum. There was note of a lot of edema fluid and induration so we had to proceed slowly and carefully dissected as well with the [place] dissector to make sure that we were not encountered any smaller vessels. We continued to divide the hilum with electrocautery spatula until was able to the interface of the gallbladder wall and the liver bed. At this point I was able to see another fine artery so this was clipped divided between clips using scissors I continued to gently separate the gallbladder from the liver bed using the cautery with the spatula as well as with blunt dissection using the tip of the spatula itself. We proceeded with this manner of dissection although the fundus. At some point there was note of a tear in the gallbladder wall and there was note of clear fluid evacuated. This were therefore consistent with hydrops the gallbladder from acute cholecystitis. We continued to gently separate the gallbladder from the liver bed until this was completed delivered. This was retrieved through an endobag through the umbilical incision. I reinserted all ports and re-insufflated. I examined all 4 quadrants and there was no other pathology nor any evidence of any bowel injury. I copies irrigated the subhepatic space and suctioned the irrigant fluid. Once hemostasis was confirmed, I proceeded to then desufflated the port sites. I removed all ports under vision with the laparoscoped. The umbilical port was removed last. The fascia of the cecal incision was closed with [id number] Dexon 0 stitch. Skin closure was achieved on all incisions using Dexon 4-0 subcuticular running sutures. Steri-Strips and dressings were applied All incisions were infiltrated with Marcaine 0.5% for postop analgesia. The procedure was completed. The patient tolerated well. There were no immediate complications. Initial and final counts of sponges and instruments were correct. Estimated blood loss about 20 cc. The patient was extubated without difficulty and transferred to the recovery room with stable vital signs
--- NOTE | 2022-05-26 11:34 | P.BOP_ITS ---
Brief Operative Note Date of Service: 05/26/22 Pre-op diagnosis: gallstones Post-op diagnosis: same Procedure: laparoscopic cholecystectomy Surgeon: ELENI SALINAS MD Anesthesia: GETA Was an Leases And Land Supervisor used for this Procedure?: Yes Leases And Land Supervisor: Shakira Mckeon Estimated blood loss (mL): 25 Pathology: other (gallbladder) Condition: stable Disposition: PACU
--- NOTE | 2022-05-26 16:30 | PM.EVENT ---
Event Note Date of Service: 05/26/22 Event Note: states he feels great postop wants to go home looks well and comfortable abd soft stable VS he is insisting on going home due to mutiple home issues I told him if he tolerates dinner, he can go home dc instructions explained dw plan with nursing
== END 2022-05-26 18:53 | disposition home or self-care (01) | DRG 418 ==
LOC: HO.ED 08:10 → HO.EDOVER 08:46 → HO.S3 13:24
PROVIDERS: Admitting Provider Surgery; Emergency Provider Emergency Medicine; Visit Provider Surgery
PROC: 0FT44ZZ Resection of Gallbladder, Percutaneous Endoscopic Approach (ICD-10-PCS; CPT 47562; principal; 2022-05-26 10:00)
DX: K80.01 Calculus of gallbladder with acute cholecystitis with obstruction (principal); K82.1 Hydrops of gallbladder; F17.210 Nicotine dependence, cigarettes, uncomplicated; Z71.6 Tobacco abuse counseling; Z20.822 Contact with and (suspected) exposure to COVID-19
CPT/HCPCS: 36415; 76705; 80048; 80076; 83690; 83735; 85025; 87635; 88304; 99285; J1100; J1170; J1885; J2250; J2405; J2795; J3010

== ENCOUNTER 2022-07-27 16:50 | Emergency (ER) | payer MEDICARE, MEDICAID, SELFPAY ==
[2022-07-27 16:56] VITALS: BP 146/74; PULSE 89; RESP 18; TEMP 36.7; O2SAT 100; BMI 29.9
--- NOTE | 2022-07-27 17:01 | ED.URI ---
HPI - URI/Sore Throat General Chief Complaint: Upper Respiratory Symptoms <Neftali Marcus MD - Last Filed: 07/27/22 17:02> Stated Complaint: strep throat, needs antibiotics <Neftali Marcus MD - Last Filed: 07/27/22 17:02> Time Seen by Provider: 07/27/22 17:06 <Neftali Marcus MD - Last Filed: 07/27/22 17:02> Source: patient <DONNA Burch - Last Filed: 07/27/22 18:15> Mode of arrival: ambulatory <DONNA Burch - Last Filed: 07/27/22 18:15> Limitations: no limitations <DONNA Burch - Last Filed: 07/27/22 18:15> History of Present Illness HPI Narrative: 32-year-old male presenting to the ER with complaints of a sore throat with white spots/chills and a nonproductive cough with subjective fevers and body aches for the past 2 days. He believes he has strep throat. He denies recent travel or sick contacts. He denies any other symptoms complaints or concerns at this time. <DONNA Burch - Last Filed: 07/27/22 18:15> MD elicited complaint: fever, cough, sore throat, rhinorrhea and nasal congestion <DONNA Burch - Last Filed: 07/27/22 18:15> Onset (ago): day(s) (2) <DONNA Burch - Last Filed: 07/27/22 18:15> Consistency: constant and progressively worsening <DONNA Burch Last Filed: 07/27/22 18:15> Severity: mild <DONNA Burch Last Filed: 07/27/22 18:15> Description of mucous: clear, watery and yellow <DONNA Burch Last Filed: 07/27/22 18:15> Able to tolerate fluids by mouth: Yes <DONNA Burch Last Filed: 07/27/22 18:15> Exacerbating factors: swallowing <DONNA Burch Last Filed: 07/27/22 18:15> Relieving factors: nothing <DONNA Burch - Last Filed: 07/27/22 18:15> Associated symptoms: fever, chills, headache, rhinorrhea, nasal congestion and cough <DONNA Burch - Last Filed: 07/27/22 18:15> Treatments prior to arrival: none <DONNA Burch - Last Filed: 07/27/22 18:15> Related Data Home Medications: Previous Rx's Medication Instructions Recorded ibuprofen 800 mg tablet 800 mg PO TID PRN abdominal pain 05/26/22 #30 tabs oxycodone 5 mg tablet 5 mg PO Q4H PRN pain (scale score 05/26/22 7-10) #26 tabs amoxicillin 875 mg-potassium 1 tab PO BID 10 days #20 tabs 07/27/22 clavulanate 125 mg tablet <Neftali Marcus MD - Last Filed: 07/27/22 17:02> Allergies/Adverse Reactions: Allergies Allergy/AdvReac Type Severity Reaction Status Date / Time No Known Allergies Allergy Verified 03/27/21 19:24 <Neftali Marcus MD - Last Filed: 07/27/22 17:02> Review of Systems Review of Systems: Constitutional : No Weight loss, + Fever, + Chills, No Night Sweats, + Fatigue, + Malaise ENT/Mouth : No Hearing loss, No Ear Pain, + Nasal Congestion, No Sinus Pain, No Hoarseness, + sore throat, + Rhinorrhea, No Swallowing Difficulty Eyes: No Eye Pain, No Swelling, No Redness, No Foreign Body, No Discharge, No Vision Changes Cardiovascular : No Chest Pain, No SOB, No Dyspnea on Exertion, No Orthopnea, No Edema, No Palpitations Respiratory : + Cough, + Sputum, No Wheezing, No Smoke Exposure, No Dyspnea Gastrointestinal : No Nausea, No Vomiting, No Diarrhea, No Constipation, No abdominal Pain, No Hematochezia, No Melena Genitourinary : no irregular bleeding, No Dysuria, No Urinary Frequency, No Hematuria, No Urinary Incontinence, No Urgency, No Flank Pain, No Urinary Flow Changes, No Hesitancy Musculoskeletal : No joint pain, No Myalgias, No Joint Swelling Skin : No Skin Lesions, No rash Neuro : No Weakness, No Numbness, No Paresthesias, No Loss of Consciousness, No Dizziness, No Headache Psych : No Anxiety/Panic, No Depression, No SI/HI/AH/VH, No Social Issues, Heme/Lymph: No Bruising, No Bleeding,No Lymphadenopathy Endocrine : No Polyuria, No Polydipsia, No Temperature Intolerance <DONNA Burch - Last Filed: 07/27/22 18:15> Yes all other systems are reviewed and are negative <DONNA Burch - Last Filed: 07/27/22 18:15> PMFSH Past Medical History Attestation statement: The following information was validated with the patient. <DONNA Burch - Last Filed: 07/27/22 18:15> Source: old records reviewed and nursing notes reviewed <DONNA Burch - Last Filed: 07/27/22 18:15> Medical History: Medical History Gallstones No known health problems <Neftali Marcus MD - Last Filed: 07/27/22 17:02> Surgical History: Surgical History No history of previous surgery <Neftali Marcus MD - Last Filed: 07/27/22 17:02> Social History Social History: Social History Household Members: Family Housing: Apartment Do you presently have visiting nurse or other home services: No Alcohol intake: current Alcohol intake frequency: a few times a month Patient Tobacco Use Status: Current everyday Tobacco user Tobacco use type: Cigarette Substance Use Type: Marijuana Advance Directives: No Advance Directives Information Provided: Yes service: No Current occupational status: disabled <Neftali Marcus MD - Last Filed: 07/27/22 17:02> Physical Exam Vital Signs: Vital Signs: Last Vital Signs Temp 98.1 F 07/27/22 16:56 Pulse 89 07/27/22 16:56 Resp 18 07/27/22 16:56 BP 146/74 H 07/27/22 16:56 Pulse Ox 100 07/27/22 16:56 O2 Del Method 07/27/22 16:56 BMI result Body Mass Index 29.9 <Neftali Marcus MD - Last Filed: 07/27/22 17:02> Vital Signs: Last Vital Signs Temp 98.1 F 07/27/22 16:56 Pulse 89 07/27/22 16:56 Resp 18 07/27/22 16:56 BP 146/74 H 07/27/22 16:56 Pulse Ox 100 07/27/22 16:56 O2 Del Method 07/27/22 16:56 BMI result Body Mass Index 29.9 Vital signs reviewed. Blood pressure 146/74. Pulse normal. Respiration normal. Oxygen normal. Temperature normal. <DONNA Burch - Last Filed: 07/27/22 18:15> Appearance: Alert. Oriented X3. No acute distress. Head: Normal external exam. Normocephalic. Atraumatic. Eyes: PERRLA. EOMI. Conjunctiva and sclera normal. Eyelids normal. ENT: EAC normal. TM's Normal. Posterior pharynx/tonsils erythematous with exudate scattered bilaterally. Uvula midline. Moist mucous membranes. No lesions/ulcerations or masses noted on the tongue. Normal voice. No trismus noted. No drooling noted. No muffled voice noted. Neck: Normal inspection. Neck supple. FROM. No adenopathy. Thyroid Normal. No meningeal signs. CVS: Normal heart rate and rhythm. Heart sound normal. Pulses normal throughout. No murmurs/rales/gallops. Respiratory: No respiratory distress. Painless inspiration. Breath sounds normal. No wheezes/rales/rhonchi noted. Chest nontender. No accessory muscle usage noted or decreased air movement noted. Abdomen: Soft and nontender. Back: Full range of motion noted. Nontender. Skin: Skin warm and dry. Normal skin color. Normal skin turgor. No rashes/lesions/lacerations noted. Extremities: Extremities exhibit normal range of motion and nontender. Neuro: Oriented X 3. No motor deficit. No sensory deficit. Reflexes normal. Normal steady gait. No focal neuro deficits noted. CN's II-XII intact bilaterally? Vascular: + radial pulses. Normal cap refill. No cyanosis noted to upper extremity nails <DONNA Burch - Last Filed: 07/27/22 18:15> Course Course Course Narrative: RME: 32-year-old male who presents emergency department for evaluation of sore throat, nonproductive cough, fever, chills and body aches x2 days. Patient states he looked in the back of his throat any noted that his throat was red with white dots and he was concerned that he had strep throat therefore came to the emergency department. Patient's vital signs were unremarkable. Physical exam did reveal posterior erythema with exudates otherwise was unremarkable. I ordered a rapid strep test, COVID-19, influenza, RSV. Patient was medicated with ibuprofen 600 mg orally for his throat pain. <Neftali Marcus MD - Last Filed: 07/27/22 17:02> Reevaluation(s) Reevaluation #1: Patient with bacterial pharyngitis. Negative for COVID/RSV/flu and was negative for strep although on my exam he has exudate and erythema therefore will treat for bacterial pharyngitis and instructions return if any new or worsening symptoms follow up with primary care provider. Patient understands agrees with this plan. Not consistent with peritonsillar abscess/pharyngeal abscess/dental abscess or gingival abscess. Patient tolerating secretions well. No trismus/drooling/stridor. <DONNA Burch - Last Filed: 07/27/22 18:15> Time: 18:14 <DONNA Burch - Last Filed: 07/27/22 18:15> Medications Administered Discontinued Medications Generic Name Dose Route Start Last Admin Trade Name Freq PRN Reason Stop Dose Admin Ibuprofen 600 mg 07/27/22 17:00 07/27/22 17:13 Ibuprofen 600 Mg Tablet PO 07/27/22 17:01 600 mg ONCE ONE Administration <Neftali Marcus MD - Last Filed: 07/27/22 17:02> Medications Administered Discontinued Medications Generic Name Dose Route Start Last Admin Trade Name Freq PRN Reason Stop Dose Admin Ibuprofen 600 mg 07/27/22 17:00 07/27/22 17:13 Ibuprofen 600 Mg Tablet PO 07/27/22 17:01 600 mg ONCE ONE Administration <DONNA Burch - Last Filed: 07/27/22 18:15> Medical Decision Making Lab Data MDM Lab Attestation statement: I reviewed the patient's lab results. <DONNA Burch - Last Filed: 07/27/22 18:15> Labs: Lab Results 07/27/22 07/27/22 Range/Units 17:01 17:01 Influenza Type A (PCR) NEGATIVE (Negative) Influenza Type B (PCR) NEGATIVE (Negative) RSV RNA Qual (PCR) NEGATIVE (Negative) SARS-CoV-2 RNA (RT-PCR) NEGATIVE (Negative) S. pyogenes GrpA HOWARD Negative (Negative) <Neftali Marcus MD - Last Filed: 07/27/22 17:02> Lab Results 07/27/22 07/27/22 Range/Units 17:01 17:01 Influenza Type A (PCR) NEGATIVE (Negative) Influenza Type B (PCR) NEGATIVE (Negative) RSV RNA Qual (PCR) NEGATIVE (Negative) SARS-CoV-2 RNA (RT-PCR) NEGATIVE (Negative) S. pyogenes GrpA HOWARD Negative (Negative) <DONNA Burch - Last Filed: 07/27/22 18:15> Discharge Plan Discharge Clinical Impression: Acute bacterial pharyngitis <Neftali Marcus MD - Last Filed: 07/27/22 17:02> Patient Disposition: Home, Self-Care <Neftali Marcus MD - Last Filed: 07/27/22 17:02> Instructions: Pharyngitis (ED) <Neftali Marcus MD - Last Filed: 07/27/22 17:02> Prescriptions: New amoxicillin-pot clavulanate 875-125 mg tablet 1 tab PO BID 10 Days Qty: 20 0RF No Action oxycodone 5 mg tablet 5 mg PO Q4H PRN (Reason: pain (scale score 7-10)) Qty: 26 0RF Rx Instructions: Partial Fill upon patient request. ibuprofen 800 mg tablet 800 mg PO TID PRN (Reason: abdominal pain) Qty: 30 0RF <Neftali Marcus MD - Last Filed: 07/27/22 17:02> Referrals: Physician,None [Primary Care Provider] - 3 days (Your PCP) <Neftali Marcus MD - Last Filed: 07/27/22 17:02>
[2022-07-27] MEDS: Ibuprofen 600 MG TABLET PO (17:13)
[2022-07-27 17:25] LABS: Strep A Nucleic Acid Negative (Negative)
[2022-07-27 17:44] LABS: Influenza A PCR NEGATIVE (Negative); Influenza B PCR NEGATIVE (Negative); Resp Syncy Virus RNA Qual PCR NEGATIVE (Negative); SARS COV2 PCR INHOUSE NEGATIVE (Negative)
== END 2022-07-27 18:21 | disposition home or self-care (01) ==
PROVIDERS: Emergency Medicine Emergency Medical Services; Emergency Provider Emergency Medicine
DX: J02.9 Acute pharyngitis, unspecified (principal); Z20.822 Contact with and (suspected) exposure to COVID-19; F17.210 Nicotine dependence, cigarettes, uncomplicated; F12.90 Cannabis use, unspecified, uncomplicated
CPT/HCPCS: 0241U; 87651; 99283

== ENCOUNTER 2023-12-01 09:41 | Emergency (ER) | payer MEDICARE, MEDICAID, SELFPAY ==
[2023-12-01 10:31] VITALS: BP 112/69; PULSE 65; RESP 16; TEMP 36.6; O2SAT 98; BMI 32.4
--- NOTE | 2023-12-01 11:50 | ED.MALEGU ---
HPI - Male Genitourinary General Chief complaint: Urogenital-Male Stated complaint: cyst on shaft ? Time Seen by Provider: 12/01/23 11:50 Source: patient Mode of arrival: ambulatory Limitations: no limitations History of Present Illness HPI Narrative: Patient is a 33 year old assigned male at with no reported medical history presenting to the emergency department today with a cyst on the shaft of his penis. Patient states that he noticed a cyst on the shaft of his penis last week, hoped it would go away, and it hasn't. Patient denies any dizziness, lightheadedness, abdominal pain, nausea, vomiting, fever, chills, blurry vision, double vision, loss of vision, chest pain, difficulty breathing, shortness of breath, back pain, night sweats, pain with urination, increased urinary frequency, increased urinary urgency, blood in his urine or stool, syncope or a near syncopal episode, recent trauma or falls, bowel incontinence, bladder incontinence, bowel retention, bladder retention, or any other complaints at this time. Onset (ago): week(s) (1) Duration: constant Location: penis Relieving factors: none Exacerbating factors: none Related Data Previous Rx's ?Medication ?Instructions ?Recorded ibuprofen 800 mg tablet 800 mg PO TID PRN abdominal pain 05/26/22 #30 tabs oxycodone 5 mg tablet 5 mg PO Q4H PRN pain (scale score 05/26/22 7-10) #26 tabs amoxicillin 875 mg-potassium 1 tab PO BID 10 days #20 tabs 07/27/22 clavulanate 125 mg tablet Allergies Allergy/AdvReac Type Severity Reaction Status Date / Time No Known Allergies Allergy Verified 12/01/23 10:35 Review of Systems Constitutional: Constitutional: Reports no additional constitutional complaints, Denies chills, Denies fever(s) and Denies night sweats Eyes: Eyes: Reports no additional eye complaints, Denies blurry vision, Denies change in vision, Denies diplopia, Denies eye discharge, Denies loss of vision and Denies eye pain ENT: Denies dizziness Cardiovascular: Cardiovascular: Reports no additional cardiovascular complaints, Denies chest pain, Denies lightheadedness, Denies Loss of Consciousness and Denies dyspnea Respiratory: Respiratory: Reports no additional respiratory complaints and Denies dyspnea Gastrointestinal: Gastrointestinal: Reports no additional gastrointestinal complaints, Denies abdominal pain, Denies melena, Denies hematochezia, Denies change in bowel habits and Denies change in stool character Genitourinary: Genitourinary: Reports no additional male genitourinary complaints, Denies hematuria, Denies oliguria, Denies difficulty urinating, Denies dysuria, Denies urinary frequency, Denies urinary hesitancy, Denies urinary incontinence and Denies urinary urgency Comments: penile cyst Musculoskeletal: Musculoskeletal: Reports no additional musculoskeletal complaints, Denies numbness and Denies tingling Neurologic: Denies dizziness, Denies loss of vision, Denies numbness and Denies tingling Psychiatric: Psychiatric: Reports no additional psychiatric complaints Endocrine: Endocrine: Reports no additional endocrine complaints Hematologic/Lymphatic: Hematologic/Lymphatic: Reports no additional hematologic/lymphatic complaints Allergic/Immunologic: Allergic/Immunologic: Reports no additional allergic/immunologic complaints PMFSH Past Medical History Attestation statement: The following information was validated with the patient. Source: old records reviewed and nursing notes reviewed Medical History Gallstones No known health problems Surgical History No history of previous surgery Social History Social History Household Members: Family Housing: Apartment Do you presently have visiting nurse or other home services: No Alcohol intake: current Alcohol intake frequency: a few times a month Patient Tobacco Use Status: Current everyday Tobacco user Tobacco use type: Cigarette Smoked in Last 30 Days: Yes Use of substances other than those prescribed or required for medical reasons: Yes Substance Use Type: Marijuana Substance Use Frequency: Daily Advance Directives: No Advance Directives Information Provided: No service: No Current occupational status: disabled Physical Exam Vital Signs: Vital Signs: Last Vital Signs Temp 97.8 F 12/01/23 12:12 Pulse 55 12/01/23 12:12 Resp 18 12/01/23 12:12 BP 121/80 12/01/23 12:12 Pulse Ox 100 12/01/23 12:12 O2 Del Method Room Air 12/01/23 12:12 BMI result Body Mass Index 32.4 Const: General: cooperative, no acute distress, alert and awake Nutritional Appearance: well nourished Orientation/consciousness: patient oriented x3 Limitations: no limitations HEENT: Head: Yes normal to inspection and Yes atraumatic Ears: hearing grossly normal bilaterally and external ears normal General nose exam: Normal external nose present, no nasal discharge noted and no epistaxis Face and sinus: Yes normal facial exam, No abrasion and No laceration Mouth: Normal oral and palatal mucosa present, no drooling and no muffled voice Eyes: General: appearance normal, both eyes and all related structures Periorbital: periorbital findings normal Eyelids: Yes eyelids normal Conjunctivae: conjunctivae normal Pupils: Equal, round and reactive pupils present EOM: EOMs intact bilaterally Neck: Neck: Yes normal visual inspection, Yes full ROM and Yes no lymphadenopathy Chest: Chest palpation & inspection: normal inspection of the chest Resp: Effort & Inspection: normal respiratory effort and able to speak in complete sentences GI: Inspection: Yes normal to inspection : Penis: other (cyst on the dorsal shaft) Neuro: General: patient oriented x3 and moves all extremities Cranial nerves: Yes Equal, round and reactive pupils present Cognition (Neuro): normal cognition Motor exam (neuro): 5/5 motor strength present throughout Sensory Exam: Normal double simultaneous stimulation for sensation Coordination: [id number] test normal Extrem: General: Yes normal to inspection, Yes full ROM and Yes capillary refill normal Psych: Appearance: grossly normal Mental Status: mental status grossly normal Affect: normal affect Attitude: cooperative Thought process: Normal thought process present Thought content: Normal thought content present Insight: Good insight present (Psych) Medical Decision Making Medical Decision Making MDM Narrative: Patient is a 33 year old assigned male at with no reported medical history presenting to the emergency department today with a penile cyst. Patient's physical exam was as noted in the physical exam portion of this note. I explained my physical exam findings to the patient. I answered all questions asked by the patient. I stressed the importance of the patient taking his medication as prescribed. I stressed the importance of the patient following up with his primary care provider and a urologist to discuss cyst excision. I stressed the importance of the patient returning to the emergency department immediately if his symptoms were to worsen or if he were to develop any dizziness, shortness of breath, difficulty breathing, chest pain, blurry vision, loss of vision, nausea, vomiting, abdominal pain, fever, chills, back pain, or any other complaints. Patient verbalized agreement and understanding with this treatment plan and discharge. Differential Diagnosis Differential Diagnoses: The differential diagnosis associated with the presentation includes Penile cyst Cyst Epidermoid cyst Admission/Observation Consideration of admission/observation: Escalation of care including admission/observation considered Patient would have been admitted to the hospital had his clinical presentation warranted hospital admission. Discharge Plan Discharge Clinical Impression: Epidermoid cyst of skin of penis Patient Disposition: Home, Self-Care Instructions: Epidermal Inclusion Cysts (ED), Cyst (ED) Additional Instructions: Call and schedule an appointment with urology to discuss possible excision of your penile cyst. Follow up with your primary care provider. Return to the emergency department immediately if your symptoms worsen or if you develop any dizziness, shortness of breath, difficulty breathing, chest pain, blurry vision, loss of vision, nausea, vomiting, abdominal pain, fever, chills, back pain, or any other complaints. Prescriptions: No Action oxycodone 5 mg tablet 5 mg PO Q4H PRN (Reason: pain (scale score 7-10)) Qty: 26 0RF Rx Instructions: Partial Fill upon patient request. ibuprofen 800 mg tablet 800 mg PO TID PRN (Reason: abdominal pain) Qty: 30 0RF amoxicillin-pot clavulanate 875-125 mg tablet 1 tab PO BID 10 Days Qty: 20 0RF Referrals: [facility] [place]] (Call to establish and follow up with a primary care provider. If you already have a primary care provider, please follow up with them.) [facility]Provider Group] [facility] [Provider Group] [facility] [place] [Provider Group] (Call to establish and follow up with a urologist.) Stand Alone Forms: Work/School Release Interventions: ED Discharge Assessment Last Done: 12/01/23 12:12 Discharge Date/Time: 12/01/23 12:16 Print Language: Czech
[2023-12-01 12:12] VITALS: BP 121/80; PULSE 55; RESP 18; TEMP 36.6; O2SAT 100
== END 2023-12-01 12:16 | disposition home or self-care (01) ==
LOC: HO.ED 12:16
PROVIDERS: Emergency Provider Student in an Organized Health Care Education/Training Program
DX: N48.89 Other specified disorders of penis (principal); F17.210 Nicotine dependence, cigarettes, uncomplicated
CPT/HCPCS: 99283; 99284

== ENCOUNTER 2024-03-07 15:44 | Outpatient (AMB) | payer MEDICARE, MEDICAID, SELFPAY ==
--- NOTE | 2024-03-07 15:48 | MHC.OFFVIS ---
Intake Visit Reasons: epidermoid cyst of penile skin Intake Note: New Patient presents for initial visit for penile cyst Urology Medications: none Blood Thinner: none Sports Medicine Specialist Required: No Accompanied by: Self / Same As Patient Allergies No Known Allergies Allergy (Verified 03/07/24 16:47) Medication List - Last Reconciled 03/07/24 by YANELIS Arredondo doxycycline hyclate 100 mg PO BID 14 days HPI Comments Details: Ger is a very pleasant 34-year-old male patient. He presents to the office today as a new patient for penile cyst/sebaceous cysts. In discussion with the patient today he reports noting growth on the foreskin of his penis approximately 2-4 weeks ago. He has had no issues with his urination and or obtaining and maintaining erections. He does report a history of shaving in the past however has not in many years. In assessment of the patient today the penis is circumcised. Two very small areas of capsule shaped bumps noted at the 12 o'clock position of the penis otherwise no open areas, redness, swelling, drainage, and or masses noted. He denies urinary urgency, urinary frequency, incontinence, nocturia, hematuria, dysuria, foul smelling urine, changes to urinary stream, flank pain, fever, and or chills. He is happy with his current voiding parameters. In office urinalysis results reviewed with the patient today. Discussed proper hygiene of area. He otherwise offers no other issues or concerns at this time. [facility] Medical History Gallstones No known health problems Surgical History No history of previous surgery Social History Household Members: Family Housing: Apartment Do you presently have visiting nurse or other home services: No Alcohol intake: current Alcohol intake frequency: a few times a month Patient Tobacco Use Status: Current everyday Tobacco user Tobacco use type: Cigarette Substance Use Type: Marijuana service: No Current occupational status: disabled Review of Systems Const All systems reviewed & are unremarkable except as noted in HPI and below Physical Exam Const General: cooperative, healthy appearing, comfortable, no acute distress, well developed, alert and awake Orientation/consciousness: patient oriented x3 Limitations: no limitations HEENT Head: Yes normal to inspection, Yes normocephalic and Yes atraumatic Ears: hearing grossly normal bilaterally Eyes General: appearance normal, both eyes and all related structures Neck Neck: Yes normal visual inspection and Yes trachea midline Chest Chest palpation & inspection: normal inspection of the chest Resp Effort & Inspection: normal respiratory effort and able to speak in complete sentences Cardio Rate: regular rate GI Inspection: Yes normal to inspection General: Yes no CVA tenderness Penis: normal penis, circumcised and other (as per HPI ) Meatus: meatus normal Scrotum: scrotum normal Testes: Testes normal Back/Spine/Pelvis Back: no CVA tenderness Skin General skin exam: no rashes or lesions noted Neuro General: patient oriented x3 Extrem General: Yes normal to inspection Psych Appearance: grossly normal and well kempt Mental Status: mental status grossly normal Speech and movement: Normal speech and movement present and Clear speech present Affect: normal affect Attitude: cooperative Thought process: Normal thought process present Thought content: Normal thought content present Insight: Fair insight present (Psych) Judgement: Fair judgement present (Psych) Assessment & Plan Assessment & Plan (1) Epidermoid cyst of skin of penis: Code(s): N48.89 - Other specified disorders of penis Category: Medical Plan In office urinalysis results reviewed with the patient today; as noted above. Discussed proper care of area. Discussed further treatment options to include possible I&D. Start doxycycline as discussed and prescribed. Patient otherwise denies any bothersome urinary issues or concerns. Follow-up in [address] Kenney for possible I&D; or sooner with any issues, concerns, and or questions. Medications: New doxycycline hyclate 100 mg PO BID 28 tabs 0RF 14 days N39.0 - Urinary tract infection, site not specified, N45.1 - Epididymitis Discontinued ibuprofen Discontinued Reason: Patient no longer taking 800 mg PO TID PRN 30 tabs 0RF abdominal pain oxycodone Partial Fill upon patient request. Discontinued Reason: Patient no longer taking 5 mg PO Q4H PRN 26 tabs 0RF pain (scale score 7-10) Patient Instructions: The patient had an opportunity to ask questions regarding the treatment plan. All questions were answered. Physical exam, labs, and imaging were discussed and reviewed in detail. As well as risks, benefits, and discussion of treatment choices. No major barriers to understanding were identified. The patient expressed understanding and agreement with the above treatment plan. The patient was made aware they should contact our office by phone for worsening of their current condition, the appearance of new symptoms, or with any questions or concerns. Compliance is encouraged with any medications and follow up testing that is ordered. It is a privilege to be allowed the opportunity to participate in? your urological care.? Again, if you have any questions or concerns If you have any questions or concerns please do not hesitate to contact me. The office is [phone]. This note is constructed using voice recognition software. While every effort has been made to ensure accuracy automotive service management teacher errors may have been included. Yours sincerely, YANELIS Arredondo Coding Level of Care Code New Pt Level 4 (96919) Diagnoses Epidermoid cyst of skin of penis N48.89
== END 2024-03-07 16:09 | disposition home or self-care (01) ==
PROVIDERS: Visit Provider Nurse Practitioner Family
DX: N48.89 Other specified disorders of penis (principal)
CPT/HCPCS: 99204

== ENCOUNTER → 2024-03-07 15:44 | Outpatient (BNVA) | payer MEDICARE, MEDICAID, SELFPAY | PROVIDERS: Visit Provider Nurse Practitioner Family | DX: N48.89 Other specified disorders of penis (principal) | CPT/HCPCS: 99202 ==

== ENCOUNTER 2024-05-28 15:19 | Outpatient (AMB) | payer MEDICARE, MEDICAID, SELFPAY ==
--- NOTE | 2024-05-28 15:28 | MHC.OFFVIS ---
Intake Visit Reasons: 1m/cyst Intake Note: Patient is present for Penile Cyst follow up Solutions Consultant Required: No Accompanied by: Self / Same As Patient Allergies No Known Allergies Allergy (Verified 03/07/24 16:47) HPI Comments Details: Ger is a very pleasant male. He presents for the following urologic conditions - sebaceous cyst on dorsum of penis Has been persistent Small cyst area noticed mid shaft 12 o'clock position Discussed lancing cyst and core removal Will be done under local anesthetic [facility] Medical History Gallstones No known health problems Surgical History No history of previous surgery Social History Household Members: Family Housing: Apartment Do you presently have visiting nurse or other home services: No Alcohol intake: current Alcohol intake frequency: a few times a month Patient Tobacco Use Status: Current everyday Tobacco user Tobacco use type: Cigarette Substance Use Type: Marijuana service: No Current occupational status: disabled Review of Systems Const Denies chills and Denies fever(s) Card Reports no additional complaints and Denies syncope Resp Denies cough GI Denies abdominal pain and Denies heartburn Reports as per HPI and Denies change in libido Neuro Denies syncope Psych Denies change in libido Endo Denies change in libido Physical Exam Const General: cooperative, healthy appearing, comfortable and no acute distress Orientation/consciousness: patient oriented x3 HEENT Face and sinus: Yes normal facial exam Mouth: moist mucous membranes Neck Neck: Yes normal visual inspection, Yes full ROM and Yes trachea midline Chest Chest palpation & inspection: normal inspection of the chest Resp Effort & Inspection: normal respiratory effort, able to speak in complete sentences and no respiratory distress GI Inspection: Yes normal to inspection Back/Spine/Pelvis Cervical Spine: normal cervical lordosis Thoracic/Lumbar Spine: thoracic and lumbar spine normal to inspection Skin General skin exam: no rashes or lesions noted Neuro General: patient oriented x3, gait normal, tone normal and moves all extremities Extrem General: Yes normal to inspection and Yes capillary refill normal Assessment & Plan Assessment & Plan (1) Epidermoid cyst of skin of penis: Code(s): N48.89 - Other specified disorders of penis Category: Medical Plan Sebaceous cyst removal penile shaft Patient Instructions: Imaging studies, laboratory and physical exam results were discussed and reviewed in detail. No major barriers to patient understanding were identified. An opportunity to ask questions regarding the treatment plan was provided. All questions were answered. The patient expressed understanding and agreement with the above treatment plan. The patient is aware they should contact our office by phone for worsening of their current condition or the appearance of new urologic symptoms. Compliance is encouraged with any medications and followup testing that is ordered. It is a privilege to participate in the urologic care of your patient. If you have any questions or concerns regarding treatment for the above conditions, or other urologic issues, please do not hesitate to contact me. The office telephone contact is [phone]. This note is constructed using voice recognition software. While every effort has been made to ensure accuracy retort condenser attendant errors may have been included. Yours sincerely, Dr Artis Kenney MD, [facility] - Urology Providers of Expert, Compassionate Care for the Genitourinary System Coding Level of Care Code Est Pt Level 3 (29944) Diagnoses Epidermoid cyst of skin of penis N48.89
== END 2024-05-28 16:26 | disposition home or self-care (01) ==
PROVIDERS: Visit Provider Urology
DX: N48.89 Other specified disorders of penis (principal)
CPT/HCPCS: 99213

== ENCOUNTER → 2024-05-28 15:19 | Outpatient (BNVA) | payer MEDICARE, MEDICAID, SELFPAY | PROVIDERS: Visit Provider Urology | DX: N48.89 Other specified disorders of penis (principal) | CPT/HCPCS: 99212 ==

== ENCOUNTER 2024-10-24 11:11 | Outpatient (AMB) | payer MEDICARE, SELFPAY ==
--- NOTE | 2024-10-24 11:14 | MHC.OFFVIS ---
Intake Visit Reasons: Cyst Removal Intake Note: Pt presents to the office today for a cyst removal procedure. Allergies No Known Allergies Allergy (Verified 10/24/24 11:15) HPI Comments Details: Ger is a very pleasant male. He presents for the following urologic conditions - sebaceous cyst on dorsum of penis Here for cyst removal See note Has been persistent Small cyst area noticed mid shaft 12 o'clock position Discussed lancing cyst and core removal Will be done under local anesthetic [facility] Medical History Gallstones No known health problems Surgical History No history of previous surgery Social History Household Members: Family Housing: Apartment Do you presently have visiting nurse or other home services: No Alcohol intake: current Alcohol intake frequency: a few times a month Patient Tobacco Use Status: Current everyday Tobacco user Tobacco use type: Cigarette Substance Use Type: Marijuana service: No Current occupational status: disabled Review of Systems Const Denies chills and Denies fever(s) Card Reports no additional complaints and Denies syncope Resp Denies cough GI Denies abdominal pain and Denies heartburn Reports as per HPI and Denies change in libido Neuro Denies syncope Psych Denies change in libido Endo Denies change in libido Physical Exam Const General: cooperative, healthy appearing, comfortable and no acute distress Orientation/consciousness: patient oriented x3 HEENT Face and sinus: Yes normal facial exam Mouth: moist mucous membranes Neck Neck: Yes normal visual inspection, Yes full ROM and Yes trachea midline Chest Chest palpation & inspection: normal inspection of the chest Resp Effort & Inspection: normal respiratory effort, able to speak in complete sentences and no respiratory distress GI Inspection: Yes normal to inspection Back/Spine/Pelvis Cervical Spine: normal cervical lordosis Thoracic/Lumbar Spine: thoracic and lumbar spine normal to inspection Skin General skin exam: no rashes or lesions noted Neuro General: patient oriented x3, gait normal, tone normal and moves all extremities Extrem General: Yes normal to inspection and Yes capillary refill normal Office Procedures Excision Details: Sebaceous cyst on shaft of penis 1.4 cm Local anesthetic infiltrated with epinephrine 1.4 cm lesion removed with oval incision Interrupted 4-0 chromic sutures for closure x5 [id number] scalp/neck/hands/feet/genitalia 1.1cm-2cm Procedure code (CPT) selection complete Office Meds lidocaine 1 %-epinephrine 1:100,000 injection solution Performing Provider: Artis Kenney MD Performing [facility] [place] Documented (not given) by: Artis Kenney MD on 10/24/24 13:37 Dose Route Admin Location Dispensed Lot Number Expiration Date [facility] Pressure Tester 2 mL Infiltration mL Assessment & Plan Assessment & Plan (1) Epidermoid cyst of skin of penis: Code(s): N48.89 - Other specified disorders of penis Category: Medical Plan Six week follow-up Orders: Orders AMB Excision Today N48.89 - Other specified disorders of penis Medications: New lidocaine-epinephrine 1 %-1:100,000 2 mL Infiltration ONCE 10 mL 0RF N48.89 - Other specified disorders of penis Patient Instructions: This note is constructed using voice recognition software. While every effort has been made to ensure accuracy drafter apprentice errors may have been included. Imaging studies, laboratory and physical exam results were discussed and reviewed in detail. No major barriers to patient understanding were identified. An opportunity to ask questions regarding the treatment plan was provided. All questions were answered. The patient expressed understanding and agreement with the above treatment plan. The patient is aware they should contact our office by phone for worsening of their current condition or the appearance of new urologic symptoms. Compliance is encouraged with any medications and followup testing that is ordered. It is a privilege to participate in the urologic care of your patient. If you have any questions or concerns regarding treatment for the above conditions, or other urologic issues, please do not hesitate to contact me. The office telephone contact is [phone]. Sincerely, Dr Artis Kenney MD, [facility] - Urology Compassionate Specialist Care for the Genitourinary System Coding Level of Care Code Procedure Only Diagnoses Epidermoid cyst of skin of penis N48.89 CPT Codes Scalp/Neck/Hands/Feet/Genetalia - CPT: [id number] scalp/neck/hands/feet/genitalia 1.1cm-2cm ([id number])
== END 2024-10-24 12:24 | disposition home or self-care (01) ==
LOC: HO.HUSH 11:11
PROVIDERS: Visit Provider Urology
DX: L72.0 Epidermal cyst (principal)
CPT/HCPCS: 11422

== ENCOUNTER 2024-10-24 11:11 | Outpatient (REF) | payer MEDICARE, SELFPAY | END 2024-10-24 11:12 | disposition home or self-care (01) | LOC: HO.LNP 11:11 | PROVIDERS: Visit Provider Urology | DX: L72.0 Epidermal cyst (principal); N48.89 Other specified disorders of penis | CPT/HCPCS: 11422; 88304 ==